=== PATIENT | female | born 1950 | race Hispanic/Latino ===

== ENCOUNTER 2018-01-15 02:41 | Emergency (ER) | payer MEDICARE ==
--- OUTSIDE RECORDS SUMMARY | 2018-01-15 02:42 | XMS REPORT ---
:1950 Author Organization eClinicalWorks Care Team Providers Name Role Phone Byrd, Na Provider Role Unavailable Allergies, Adverse Reactions, Alerts Substance Reaction Event Type N.K.D.A. 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 Problem Allergic rhinitis J30.9 Active Assessment Other spondylosis with M47.22 Active radiculopathy, cervical region Problem Hyperlipidemia E78.5 Active Assessment Acquired hypothyroidism E03.9 Active Problem Other spondylosis with M47.22 Active radiculopathy, cervical region Problem Tinea unguium B35.1 Active Problem Other spondylosis with myelopathy, 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 Problem Pain in left shoulder M25.512 Active Problem Cervicalgia M54.2 Active Assessment Hypertension I10 Active Problem Pain in right shoulder M25.511 Active Assessment Hyperlipidemia E78.5 Active Problem Lesion of oral mucosa K13.70 Active Problem Glaucoma of left eye, unspecified H40.9 Active glaucoma type Problem Decreased hearing of right ear H91.91 Active Problem History of recent fall Z91.81 Active Problem 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 Problem Family history of diabetes mellitus Z83.3 Active (DM) Problem Family history of colon cancer Z80.0 Active Problem Dry eyes H04.123 Active Problem GERD (gastroesophageal reflux K21.9 Active disease) Problem Hypertension I10 Active Problem Seasonal allergic rhinitis due to J30.1 Active pollen Problem Acquired hypothyroidism E03.9 Active Medications Medication Code Code Instructions Start End Status Dosage System Date Date Lipitor NDC 64372056197 20 MG Orally Active 1 tablet Once a day Coreg NDC 08056092686 6.25 MG Orally Active 1 tab twice a day Synthroid ND 91568992904 25 MCG Orally Active 1 tablet on an Once a day empty stomach in the morning Mupirocin [facility] 02134127514 2 % Externally Active 1 application Three times a to affected day area Claritin [facility] 16332288820 10 MG Orally Active 1 tablet Once a day Norvasc [facility] 01381073676 5 MG Orally Active 1 tablet Once a day Amlodipine [facility] 64287830507 5 MG Active TAKE 1 TABLET Besylate BY MOUTH DAILY Results No Known Results Summary Purpose eClinicalWorks Submission
--- OUTSIDE RECORDS SUMMARY | 2018-01-15 02:42 | XMS REPORT ---
:1950 Author Organization eClinicalWorks Care Team Providers Name Role Phone Byrd, Na Provider Role Unavailable Allergies No Known Allergies Problems Problem Type Condition Code Onset Dates Condition Status Problem Other spondylosis with M47.22 Active radiculopathy, cervical region Problem Tinea unguium B35.1 Active Problem Other spondylosis with myelopathy, 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 Problem Pain in left shoulder M25.512 Active Problem Cervicalgia M54.2 Active Assessment Breast cancer screening by Z12.31 Active mammogram Problem Pain in right shoulder M25.511 Active Problem Lesion of oral mucosa K13.70 [...] rhinitis due to J30.1 Active pollen Problem Allergic rhinitis J30.9 Active Problem Acquired hypothyroidism E03.9 Active Problem Hyperlipidemia E78.5 Active Medications No Known Medications Results No Known Results Summary Purpose eClinicalWorks Submission
--- OUTSIDE RECORDS SUMMARY | 2018-01-15 02:42 | XMS REPORT ---
[...] shoulder M25.512 Active Problem Cervicalgia M54.2 Active Problem Pain in right shoulder M25.511 [...] E03.9 Active Problem Hyperlipidemia E78.5 Active Medications Medication Code System Code Instructions Start End Date Status Dosage Date Synthroid [facility] 84526542035 50 MCG Orally Active 1 tablet on Once a day an empty stomach in the morning Results No Known Results Summary Purpose eClinicalWorks Submission
[2018-01-15] MEDS ORDERED: HYDRALAZINE HCL 20 MG/ML VIAL ONE (02:56)
[2018-01-15 03:41] LABS: Absolute Lymphocytes (CBC) 2.6 K/uL (0.7-4.9); Absolute Monocytes 0.5 K/uL (0.1-1.3); Absolute Neutrophil 4.7 K/uL (1.8-8.0); Basophils % 0.5 % (0-1.3); Eosinophils % 1.8 % (0-4.4); Hematocrit 41.6 % (36.0-45.0); Lymphocytes % 32.6 % (15.3-44.8); MCH 31.1 pg (27.0-35.0); MCV 89.1 fL (80-100); MPV 10.8 fL (7.6-11.3); Monocytes % 6.5 % (3.3-12.3); RBC Red Blood Cell Count 4.67 M/uL (3.86-4.86)
[2018-01-15 03:42] LABS: Protime INR 0.93
[2018-01-15 03:57] LABS: ALT/SGPT 27 U/L (12-78); AST/SGOT 22 U/L (15-37); Alkaline Phosphatase 107 U/L (45-117); BUN Blood Urea Nitrogen 14 mg/dL (7-18); Bicarbonate 26 mmol/L (21-32); Bilirubin Direct 0.1 mg/dL (0-0.2); Bilirubin Total 0.4 mg/dL (0.2-1.0); CKMB Creatine Kinase MB 2.5 ng/mL (0.3-3.6); Creatine Phosphokinase 187 U/L (26-192); Glucose Level 120 mg/dL (74-106); Magnesium 2.4 mg/dL (1.8-2.4); NT PRO-BNP 65 pg/mL (<125); Potassium 3.4 mmol/L (3.5-5.1); Protein, Total 8.1 g/dL (6.4-8.2); Sodium Level 139 mmol/L (136-145); Troponin (Emerg Dept Use Only) < 0.02 ng/mL (0.0-0.045)
[2018-01-15 04:04] LABS: Urine Blood TRACE (NEG); Urine Glucose NEGATIVE (NEG); Urine Protein NEGATIVE (NEG); Urine pH 8.5 (5.0-7.0)
[2018-01-15] MEDS ORDERED: ACETAMINOPHEN 325 MG TABLET ONE (04:06)
[2018-01-15] MEDS ORDERED: ONDANSETRON 4 MG/2 ML VIAL ONE (04:12)
[2018-01-15] MEDS ORDERED: MECLIZINE HCL 12.5 MG TAB ONE ×2 (04:33→05:53)
--- NOTE | 2018-01-15 05:48 | ER ---
Nurse's Notes [facility] Name: Kayla Babcock Age: 67 yrs Sex: Female : 1950 Arrival Date: 01/15/2018 Time: 02:42 Bed 15 Private MD: Diagnosis: Vertigo of central origin, unspecified ear Presentation: 01/15 03:04 Presenting complaint: Patient states: "I got really dizzy like the room was spinning jd3 and then got very nauseous. my stomach started to hurt and I have a slight head ache. I am also feeling very weak.". Transition of care: patient was not received from another setting of care. Onset of symptoms was January 15, 2018. Risk Assessment: Do you want to hurt yourself or someone else? Patient reports no desire to harm self or others. Initial Sepsis Screen: Does the patient meet any 2 criteria? No. Patient's initial sepsis screen is negative. Does the patient have a suspected source of infection? No. Patient's initial sepsis screen is negative. Care prior to arrival: None. 03:04 Method Of Arrival: Wheelchair jd3 03:04 Acuity: GUIDO 3 jd3 Triage Assessment: 03:28 General: Appears uncomfortable, Behavior is restless. Pain: Complains of pain in ea headache Pain currently is 5 out of 10 on a pain scale. Quality of pain is described as aching, dull. EENT: No signs and/or symptoms were reported regarding the EENT system. Neuro: Level of Consciousness is awake, alert, obeys commands, Oriented to person, place, time, situation, Reports dizziness, since 11 PM last night headache occipital area. Cardiovascular: Heart tones S1 S2 present Patient's skin is warm and dry. Respiratory: Airway is patent Respiratory effort is even, unlabored, Respiratory pattern is regular, symmetrical, Breath sounds are clear bilaterally. GI: Abdomen is non-distended, Bowel sounds present X 4 quads. : No signs and/or symptoms were reported regarding the genitourinary system. Derm: Skin is dry, Skin is pale, Skin temperature is warm. Musculoskeletal: Reports generalized weakness. Historical: - Allergies: 03:10 No Known Allergies; jd3 - Home Meds: 03:10 amlodipine 5 mg tab 1 tab once daily [Active]; atorvastatin 20 mg oral tab 1 tab once jd3 daily [Active]; levothyroxine 50 mcg tab 1 tab once daily [Active]; carvedilol 6.25 mg oral tab 1 tab 2 times per day [Active]; - PMHx: 03:10 Hypertension; High Cholesterol; jd3 - PSHx: 03:10 right overy sx; jd3 - Immunization history:: Adult Immunizations up to date. - Social history:: Smoking status: Patient/guardian denies using tobacco. - Ebola Screening: : Patient negative for fever greater than or equal to 101.5 degrees Fahrenheit, and additional compatible Ebola Virus Disease symptoms. Screenin:11 Abuse screen: Denies threats or abuse. Nutritional screening: No deficits noted. jd3 Tuberculosis screening: No symptoms or risk factors identified. Fall Risk IV access (20 points). Ambulatory Aid- Crutches/Cane/Walker (15 pts). Gait- Weak (10 pts.). Mental Status- Oriented to own ability (0 pts). Total Castro Fall Scale indicates Low Risk Score (25-44 pts). Fall prevention measures have been instituted. Side Rails Up X 2 Placed close to Nursing Station Frequent Obs/Assesments occuring Family Present and informed to notify staff if they need to leave bedside. Assessment: 03:28 Reassessment: see triage assessment. ea 04:15 Reassessment: Pt complaining of headache, provider notified, medication order obtained, ea medication administered, pt tolerated well. Reassessment: Pt complaining of nausea provider notified, medication orders obtained, medication administered. Pt tolerated well. 05:30 Reassessment: Patient and/or family updated on plan of care and expected duration. Pain ea level reassessed. Patient is alert, oriented x 3, equal unlabored respirations, skin warm/dry/pink. Pt reports symptoms improved. States " I feel less dizzy". 06:28 Reassessment: Patient and/or family updated on plan of care and expected duration. Pain ea level reassessed. Patient is alert, oriented x 3, equal unlabored respirations, skin warm/dry/pink. Discharge instructions given to patient, verbalized the understanding of instruction. Patient states feeling better. Patient states symptoms have improved. Vital Signs: 03:10 BP 194 / 91; Pulse 71; Resp 27 S; Temp 97.9(O); Pulse Ox 100% on R/A; Weight 60.78 kg jd3 (R); Height 5 ft. 2 in. (157.48 cm) (R); Pain 5/10; 03:38 BP 153 / 79; Pulse 78; Resp 18; Pulse Ox 98% ; ea 04:37 BP 138 / 77; Pulse 76; Resp 18; Pulse Ox 98% on R/A; ea 05:30 BP 136 / 78; Pulse 76; Resp 18; Pulse Ox 99% ; ea 06:15 BP 148 / 80; Pulse 80; Resp 18; Temp 97.6(O); Pulse Ox 99% ; Pain 0/10; ea 03:10 Body Mass Index 24.51 (60.78 kg, 157.48 cm) jd3 ED Course: 02:42 Patient arrived in ED. ds1 02:50 Kurtis Posada MD is Attending Physician. tw4 03:06 Triage completed. jd3 03:11 Arm band placed on. EKG completed in triage. Results shown to MD. jd3 03:11 Patient has correct armband on for positive identification. Bed in low position. Call jd3 light in reach. Side rails up X2. Adult w/ patient. 03:16 X-ray completed. Portable x-ray completed in exam room. Patient tolerated procedure kp1 well. 03:16 Abby Robison, RN is Primary Nurse. ea 03:17 XRAY Chest (1 view) In Process Unspecified. EDMS 06:28 No provider procedures requiring assistance completed. IV discontinued, intact, ea bleeding controlled, No redness/swelling at site. Pressure dressing applied. Administered Medications: 03:07 Drug: hydrALAZINE 10 mg Route: IV; Rate: bolus; Site: left antecubital; ea 03:37 Follow up: Response: No adverse reaction; Blood pressure is lowered; IV Status: ea Completed infusion 04:13 Drug: Tylenol 650 mg Route: PO; ea 05:13 Follow up: Response: No adverse reaction; Pain is decreased ea 04:29 CANCELLED (Duplicate Order): Meclizine 12.5 mg PO once ea 04:32 Drug: Zofran 4 mg Route: IVP; Site: left antecubital; ea 05:00 Follow up: Response: No adverse reaction ea 04:32 Drug: Meclizine 25 mg Route: PO; ea 05:00 Follow up: Response: No adverse reaction ea 05:57 Drug: Meclizine 25 mg Route: PO; ea 06:30 Follow up: Response: No adverse reaction ea Point of Care Testing: Blood Glucose: 03:10 Blood Glucose: 117 mg/dL; danield3 Ranges: Outcome: 05:47 Discharge ordered by . tw4 06:31 Discharged to home via wheelchair, with family. ea 06:31 Condition: improved 06:31 Discharge instructions given to patient, Instructed on discharge instructions, follow up and referral plans. medication usage, Demonstrated understanding of instructions, follow-up care, medications, Prescriptions given X 2. 06:32 Patient left the ED. ea Signatures: Dispatcher [employer] EDWY CastroLiz romero ds1 Ruthie Elaine kp1 Abby Robison RN RN ea Davies, Jonathon, RN RN jd3 Wadley, Terrence, MD MD tw4 Corrections: (The following items were deleted from the chart) 06:29 06:28 Reassessment: Patient and/or family updated on plan of care and expected ea duration. Pain level reassessed. Patient is alert, oriented x 3, equal unlabored respirations, skin warm/dry/pink. Patient states feeling better. Patient states symptoms have improved. ea
--- NOTE | 2018-01-15 05:48 | EDPHYS ---
Physician Documentation [facility] Name: Kayla Babcock Age: 67 yrs Sex: Female : 1950 Arrival Date: 01/15/2018 Time: 02:42 Bed 15 Private MD: ED Physician Kurtis Posada HPI: 01/15 02:58 This 67 yrs old Female presents to ER via Unassigned with complaints of tw4 Weakness, Dizziness. 02:58 The patient presents with generalized weakness, lightheadedness, vertigo. Onset: The tw4 symptoms/episode began/occurred just prior to arrival, today. Context: occurred at home, occurred while the patient was getting up from bed, standing. Modifying factors: The symptoms are alleviated by nothing, the symptoms are aggravated by nothing. Associated signs and symptoms: Pertinent positives: nausea, Pertinent negatives: abdominal pain, agitation, ataxia. Severity of symptoms: At their worst the symptoms were moderate in the emergency department the symptoms are unchanged. The patient has not experienced similar symptoms in the past. Historical: - Allergies: 03:10 No Known Allergies; jd3 - Home Meds: 03:10 amlodipine 5 mg tab 1 tab once daily [Active]; atorvastatin 20 mg oral tab 1 tab once jd3 daily [Active]; levothyroxine 50 mcg tab 1 tab once daily [Active]; carvedilol 6.25 mg oral tab 1 tab 2 times per day [Active]; - PMHx: 03:10 Hypertension; High Cholesterol; jd3 - PSHx: 03:10 right overy sx; jd3 - Immunization history:: Adult Immunizations up to date. - Social history:: Smoking status: Patient/guardian denies using tobacco. - Ebola Screening: : Patient negative for fever greater than or equal to 101.5 degrees Fahrenheit, and additional compatible Ebola Virus Disease symptoms. ROS: 02:58 Constitutional: Negative for fever, chills, and weight loss, Eyes: Negative for injury, tw4 pain, redness, and discharge, Cardiovascular: Negative for chest pain, palpitations, and edema, Respiratory: Negative for shortness of breath, cough, wheezing, and pleuritic chest pain, Abdomen/GI: Negative for abdominal pain, nausea, vomiting, diarrhea, and constipation, MS/Extremity: Negative for injury and deformity, Skin: Negative for injury, rash, and discoloration. 02:58 Neuro: Positive for dizziness, Negative for altered mental status, gait disturbance, headache, hearing loss, loss of consciousness, numbness, seizure activity, speech changes, syncope. Exam: 02:58 Constitutional: This is a well developed, well nourished patient who is awake, alert, tw4 and in no acute distress. Head/Face: Normocephalic, atraumatic. Neck: Trachea midline, no thyromegaly or masses palpated, and no cervical lymphadenopathy. Supple, full range of motion without nuchal rigidity, or vertebral point tenderness. No Meningismus. Chest/axilla: Normal chest wall appearance and motion. Nontender with no deformity. No lesions are appreciated. Cardiovascular: Regular rate and rhythm with a normal S1 and S2. No gallops, murmurs, or rubs. Normal PMI, no JVD. No pulse deficits. Abdomen/GI: Soft, non-tender, with normal bowel sounds. No distension or tympany. No guarding or rebound. No evidence of tenderness throughout. MS/ Extremity: Pulses equal, no cyanosis. Neurovascular intact. Full, normal range of motion. Neuro: Awake and alert, GCS 15, oriented to person, place, time, and situation. Cranial nerves II-XII grossly intact. Motor strength 5/5 in all extremities. Sensory grossly intact. Cerebellar exam normal. Normal gait. Psych: Awake, alert, with orientation to person, place and time. Behavior, mood, and affect are within normal limits. Vital Signs: 03:10 BP 194 / 91; Pulse 71; Resp 27 S; Temp 97.9(O); Pulse Ox 100% on R/A; Weight 60.78 kg jd3 (R); Height 5 ft. 2 in. (157.48 cm) (R); Pain 5/10; 03:38 BP 153 / 79; Pulse 78; Resp 18; Pulse Ox 98% ; ea 04:37 BP 138 / 77; Pulse 76; Resp 18; Pulse Ox 98% on R/A; ea 05:30 BP 136 / 78; Pulse 76; Resp 18; Pulse Ox 99% ; ea 06:15 BP 148 / 80; Pulse 80; Resp 18; Temp 97.6(O); Pulse Ox 99% ; Pain 0/10; ea 03:10 Body Mass Index 24.51 (60.78 kg, 157.48 cm) jd3 MDM: 02:50 Patient medically screened. 01/16 02:57 Differential diagnosis: cardiac arrhythmia, CVA, idiopathic dizziness, near-syncope, tw4 TIA. Data reviewed: vital signs, nurses notes. Data interpreted: satellite project site monitor: rhythm is normal sinus rhythm, Pulse oximetry: Interpretation: normal. Counseling: I had a detailed discussion with the patient and/or guardian regarding: the historical points, exam findings, and any diagnostic results supporting the discharge/admit diagnosis, lab results, radiology results. Special discussion: I discussed with the patient/guardian in detail that at this point there is no indication for admission to the hospital. It is understood, however, that if the symptoms persist or worsen the patient needs to return immediately for re-evaluation. 01/15 02:52 Order name: Basic Metabolic Panel; Complete Time: 05:10 01/15 05:11 Interpretation: Normal except: GLUC 120; GFR 83; K 3.4. 01/15 02:52 Order name: CBC with Diff; Complete Time: 05:10 01/15 02:52 Order name: Ckmb; Complete Time: 05:10 01/15 05:10 Interpretation: Within normal limits: CKMB 2.5. 01/15 02:52 Order name: CPK; Complete Time: 05:10 01/15 05:10 Interpretation: Within normal limits: CPK 187. 01/15 02:52 Order name: LFT's; Complete Time: 05:10 01/15 05:10 Interpretation: Normal except: GLOB 4.1; A/G 1.0. 01/15 02:52 Order name: Magnesium; Complete Time: 05:10 01/15 05:10 Interpretation: Within normal limits: MG 2.4. 01/15 02:52 Order name: NT PRO-BNP; Complete Time: 05:10 01/15 05:10 Interpretation: Within normal limits: NT PRO-BNP 65. 01/15 02:52 Order name: PT-INR; Complete Time: 05:10 01/15 05:11 Interpretation: Within normal limits: PT 11.0. 01/15 02:52 Order name: Ptt, Activated; Complete Time: 05:10 01/15 05:11 Interpretation: Within normal limits: PTT 30.7. 01/15 02:52 Order name: Troponin (emerg Dept Use Only); Complete Time: 05:10 01/15 05:11 Interpretation: Within normal limits: TROPED < 0.02. 01/15 02:52 Order name: XRAY Chest (1 view) 01/15 03:52 Order name: Urine Dipstick--Ancillary (enter results); Complete Time: 05:10 ms 01/15 05:10 Interpretation: Normal except: UPH 8.5; UBLD TRACE. 01/15 02:52 Order name: EKG; Complete Time: 02:53 01/15 02:52 Order name: Cardiac monitoring; Complete Time: 03:15 01/15 02:52 Order name: EKG - Nurse/Tech; Complete Time: 03:15 01/15 02:52 Order name: IV Saline Lock; Complete Time: 03:15 01/15 02:52 Order name: Labs collected and sent; Complete Time: 03:15 01/15 02:52 Order name: O2 Per Protocol; Complete Time: 03:15 01/15 02:52 Order name: O2 Sat Monitoring; Complete Time: 03:15 01/15 02:52 Order name: Urine Dipstick-Ancillary (obtain specimen); Complete Time: 03:35 tw4 EC/02 02:58 Rate is 71 beats/min. Rhythm is regular. QRS [place] is Normal. IN interval is normal. QT tw4 interval is normal. T waves are Normal. No ST changes noted. Clinical impression: Normal ECG. Interpreted by me. Reviewed by me. Administered Medications: 03:07 Drug: hydrALAZINE 10 mg Route: IV; Rate: bolus; Site: left antecubital; ea 03:37 Follow up: Response: No adverse reaction; Blood pressure is lowered; IV Status: ea Completed infusion 04:13 Drug: Tylenol 650 mg Route: PO; ea 05:13 Follow up: Response: No adverse reaction; Pain is decreased ea 04:29 CANCELLED (Duplicate Order): Meclizine 12.5 mg PO once ea 04:32 Drug: Zofran 4 mg Route: IVP; Site: left antecubital; ea 05:00 Follow up: Response: No adverse reaction ea 04:32 Drug: Meclizine 25 mg Route: PO; ea 05:00 Follow up: Response: No adverse reaction ea 05:57 Drug: Meclizine 25 mg Route: PO; ea 06:30 Follow up: Response: No adverse reaction ea Point of Care Testing: Blood Glucose: 03:10 Blood Glucose: 117 mg/dL; jd3 Ranges: Critical Glucose Levels:Adult <50 mg/dl or >400 mg/dl <40 mg/dl or >180 mg/dl Disposition: 01/15/18 05:47 Discharged to Home. Impression: Vertigo of central origin, unspecified ear. - Condition is Stable. - Discharge Instructions: Dizziness, Vertigo. - Prescriptions for Meclizine 25 mg Oral Tablet - take 1 tablet by ORAL route every 8 hours As needed; 30 tablet. Zofran 4 mg Oral Tablet - take 1 tablet by ORAL route every 12 hours As needed; 6 tablet. - Medication Reconciliation Form, Thank You Letter, Antibiotic Education, Prescription Opioid Use form. - Follow up: Private Physician; When: Today; Reason: Further diagnostic work-up, Recheck today's complaints, Re-evaluation by your physician. - Problem is new. - Symptoms have improved. Signatures: Dispatcher [employer] EDAbby Castañeda RN RN ea Davies, Jonathon RN Kurtis Baker MD MD tw4 Corrections: (The following items were deleted from the chart) 04:29 04:26 Meclizine 12.5 mg PO once ordered. [facility] 05:11 05:10 Normal except: GLUC 120. tw4 tw4 06:32 05:47 01/15/2018 05:47 Discharged to Home. Impression: Vertigo of central origin, ea unspecified ear. Condition is Stable. Forms are Medication Reconciliation Form, Thank You Letter, Antibiotic Education, Prescription Opioid Use. Follow up: Private Physician; When: Today; Reason: Further diagnostic work-up, Recheck today's complaints, Re-evaluation by your physician. Problem is new. Symptoms have improved. tw4
--- NOTE | 2018-01-15 08:37 | EKG ---
Test Date: 2018-01-15 Test Time: 02:51:31 Coffee Maker Servicer: JESSIE MEASUREMENT RESULTS: Intervals: Rate: 71 MD: 146 QRSD: 70 QT: 392 QTc: 425 [place]: P: 68 MD: 146 QRS: 59 T: 48 INTERPRETIVE STATEMENTS: Normal sinus rhythm Normal ECG No previous ECG available for comparison Electronically Signed On 01-15-18 08:36:19 CDT by Jesús Nelson
--- NOTE | 2018-01-15 09:39 | RAD REPORT ---
EXAM DESCRIPTION: Richard Single View01/15/2018 9:10 am CLINICAL HISTORY: CHEST PAIN COMPARISON: No comparisons FINDINGS: The lungs appear clear of acute infiltrate. The heart is normal size IMPRESSION: No acute abnormalities displayed
== END 2018-01-15 06:32 | disposition home or self-care (01) ==
LOC: ER 02:41
DX: H81.49 Vertigo of central origin, unspecified ear (principal); I10 Essential (primary) hypertension; E78.00 Pure hypercholesterolemia, unspecified
CPT/HCPCS: 36415; 71045; 80048; 80076; 81003; 82550; 82553; 83735; 83880; 84484; 85025; 85610; 85730; 93005; 96365; 96375; 99283; J0360; J2405; 82962

== ENCOUNTER 2019-07-26 16:15 | Emergency (ER) | payer MEDICARE, OTHER ==
--- OUTSIDE RECORDS SUMMARY | 2019-07-26 16:18 | XMS REPORT ---
:1950 Author [facility] Address [address] [place] [address] Dr. Montoya [address] [place] [id number] Care Team Providers Name Role Phone Unavailable Unavailable Unavailable Problems This patient has no known problems. Allergies, Adverse Reactions, Alerts This patient has no known allergies or adverse reactions. Medications This patient has no known medications.
--- OUTSIDE RECORDS SUMMARY | 2019-07-26 16:19 | XMS REPORT ---
:1950 Author Organization e[employer]Works Care Team Providers Name Role Phone Byrd, Na Provider Role Unavailable Allergies, Adverse Reactions, Alerts Substance Reaction Event Type N.K.D.A. Info Not Available Non Drug Allergy Problems Problem Type Condition Code Onset Dates Condition Status Assessment Hypertension I10 Active Assessment Gastroesophageal reflux disease, K21.9 Active esophagitis presence not specified Assessment Dizziness R42 Active Problem Hypertension I10 Active Problem Allergic rhinitis J30.9 Active Problem Hyperlipidemia E78.5 Active Problem GERD (gastroesophageal reflux K21.9 Active disease) Problem Acquired hypothyroidism E03.9 Active Problem Family history of colon cancer Z80.0 Active Problem History of recent fall Z91.81 Active Problem Lesion of oral mucosa K13.70 Active Problem Dry eyes H04.123 Active Problem Cervical disc herniation M50.20 Active Problem Abnormal mammogram R92.8 Active Problem Ingrown toenail of right foot L60.0 Active Problem Memory changes R41.3 Active Problem Primary insomnia F51.01 Active Problem Seasonal allergic rhinitis due to J30.1 Active pollen Problem Family history of diabetes mellitus Z83.3 Active (DM) Problem Dizziness R42 Active Problem 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 Problem Mild atherosclerosis of both I65.23 Active carotid arteries Problem Abnormal mammogram of left breast R92.8 Active Problem Gastroesophageal reflux disease, K21.9 Active esophagitis presence not specified Problem Mild carotid artery disease I77.9 Active Assessment Primary insomnia F51.01 Active Problem Other spondylosis with M47.22 Active radiculopathy, cervical region Assessment Memory changes R41.3 Active Problem Other spondylosis with myelopathy, 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 Assessment Hyperlipidemia E78.5 Active Problem Glaucoma of left eye, unspecified H40.9 Active glaucoma type Assessment Acquired hypothyroidism E03.9 Active Problem Tinea unguium B35.1 Active Assessment Seasonal allergic rhinitis due to J30.1 Active pollen Problem Decreased hearing of right ear H91.91 Active Assessment Mild atherosclerosis of both I65.23 Active carotid arteries Problem Cervicalgia M54.2 Active Problem Pain in left shoulder M25.512 Active Problem Pain in right shoulder M25.511 Active Medications Medication Code Code Instructions Start End Status Dosage System Date Date Coreg [facility] 20554464628 6.25 Orally Active 1 tab twice a day Omeprazole [facility] 95625231730 40 MG Orally Feb 01, Active 1 capsule Once a day 2018 Synthroid [facility] 29840404351 50 MCG Orally Active 1 tablet on Once a day an empty stomach in the morning Claritin [facility] 39549886982 10 MG Orally Active 1 tablet Once a day Medrol [facility] 10491719673 4 MG Orally Jun 13, Active as directed daily 2018 with food Montelukast [facility] 72317554415 10 MG Orally May 22, Active 1 tablet in Sodium Once a day 2018 the evening Tamiflu [facility] 51134477836 75 MG Orally May 02, Active 1 capsule Twice a day 2017 Coreg [facility] 68150866095 6.25 MG Orally Active 1 tab twice a day Montelukast [facility] 91278611638 10 MG Orally Jan 23, Active 1 tablet in Sodium Once a day 2017 the evening Amlodipine [facility] 79018596928 5 Active TAKE 1 TABLET Besylate BY MOUTH DAILY Atorvastatin [facility] 64013602122 40 MG Orally Dec 27, Active 1 tablet Calcium Once a day 2018 Mirtazapine [facility] 11302780137 7.5 MG Orally Feb 01, Active 1 tablet at Once a day 2019 bedtime Lipitor [facility] 47855398124 20 MG Orally Active 1 tablet Once a day Coreg [facility] 14552262004 6.25 Orally Active 1 tab twice a day Mupirocin [facility] 71943542246 2 % Externally Active 1 application Three times a to affected day area Cetirizine HCl [facility] 09252168218 10 MG Orally May 22, Active 1 tablet Once a day in 2018 AM Norvasc [facility] 98878862402 2.5 MG Orally Active 1 tablet Once a day Results No Known Results Summary Purpose eClinicalWorks Submission
--- OUTSIDE RECORDS SUMMARY | 2019-07-26 16:19 | XMS REPORT ---
:1950 Author Organization [employer] Care Team Providers Name Role Phone Byrd, Na Provider Role Unavailable Allergies No Known Allergies Problems Problem Type Condition Code Onset Dates Condition Status Problem Hypertension I10 Active Problem Allergic rhinitis J30.9 Active Problem Hyperlipidemia E78.5 Active Problem GERD (gastroesophageal reflux K21.9 Active disease) Problem Acquired hypothyroidism E03.9 Active Problem Family history of colon cancer Z80.0 Active Problem Dry eyes H04.123 Active Problem Lesion of oral mucosa K13.70 Active Problem Cervical disc herniation M50.20 Active Problem 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 Problem Ingrown toenail of right foot L60.0 Active Problem Abnormal mammogram of left breast R92.8 Active Problem Abnormal mammogram R92.8 Active Problem Gastroesophageal reflux disease, K21.9 Active esophagitis presence not specified Problem Memory changes R41.3 Active Problem Glaucoma of left eye, unspecified H40.9 Active glaucoma type Problem Seasonal allergic rhinitis due to J30.1 Active pollen Problem Screening for malignant neoplasm of Z12.39 Active breast Problem Family history of diabetes mellitus Z83.3 Active (DM) Problem Mild carotid artery disease I77.9 Active Problem Mild atherosclerosis of both I65.23 Active carotid arteries Problem Primary insomnia F51.01 Active Problem Dizziness R42 Active Problem Other spondylosis with myelopathy, 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
--- OUTSIDE RECORDS SUMMARY | 2019-07-26 16:19 | XMS REPORT ---
:1950 Author Organization [employer]Works Care Team Providers Name Role Phone Byrd, Na Provider Role Unavailable Allergies, Adverse Reactions, Alerts Substance Reaction Event Type N.K.D.A. 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 Assessment Hypertension I10 Active Problem Decreased hearing of right ear H91.91 Active Assessment Primary insomnia F51.01 Active Problem Tinea unguium B35.1 Active Assessment Mild atherosclerosis of both I65.23 Active carotid arteries Problem Other spondylosis with M47.22 Active radiculopathy, cervical region Assessment Seasonal allergic rhinitis due to J30.1 Active pollen Problem Cervicalgia M54.2 Active Assessment Change in bowel habits R19.4 Active Problem History of recent fall Z91.81 Active Problem Pain in left shoulder M25.512 Active Problem Pain in right shoulder M25.511 Active Medications Medication Code Code Instructions Start End Status Dosage System Date Date Montelukast [facility] 43220882461 10 mg Orally Active 1 tablet in Sodium Once a day the evening Norvasc [facility] 36543244753 2.5 MG Orally Active 1 tablet Once a day Meclizine HCl ND 73796517663 25 MG Orally Mar 06, Active 1 tablet as Once a day 2018 needed Medrol [facility] 72080056356 4 MG Orally Jun 13, Active as directed daily 2018 with food Atorvastatin ND 90184276771 40 MG Orally Dec 27, Active 1 tablet Calcium Once a day 2018 Carvedilol [facility] 90260337805 6.25 mg Active TAKE 1 TABLET BY MOUTH TWICE DAILY. Tamiflu [facility] 89997011858 75 MG Orally May 02, Active 1 capsule Twice a day 2017 Omeprazole [facility] 94939456335 40 MG Orally Feb 01, Active 1 capsule Once a day 2018 Cetirizine HCl [facility] 56067641601 10 MG Orally May 22, Active 1 tablet Once a day in 2018 AM Coreg [facility] 86375626377 6.25 Orally Active 1 tab twice a day Lipitor [facility] 54427266274 20 MG Orally Active 1 tablet Once a day Claritin [facility] 45612076311 10 MG Orally Active 1 tablet Once a day Amlodipine [facility] 97228180093 5 mg Active TAKE 1 TABLET Besylate BY MOUTH EVERY DAY Synthroid [facility] 68272732101 50 MCG Orally Active 1 tablet on Once a day an empty stomach in the morning Amlodipine [facility] 50328858379 5 Active TAKE 1 TABLET Besylate BY MOUTH DAILY Mupirocin [facility] 79458984973 2 % Externally Active 1 application Three times a to affected day area Coreg [facility] 54264799011 6.25 MG Orally Active 1 tab twice a day Mirtazapine [facility] 95135238718 15 MG Orally Active 1 tablet at Once a day bedtime Coreg [facility] 57585607948 6.25 Orally Active 1 tab twice a day Results No Known Results Summary Purpose eClinicalWorks Submission
--- OUTSIDE RECORDS SUMMARY | 2019-07-26 16:20 | XMS REPORT ---
:1950 Author Organization eClinicalWorks Care Team Providers Name Role Phone Byrd, Na Provider Role Unavailable Allergies No Known Allergies Problems Problem Type Condition Code Onset Dates Condition Status Assessment Hypertension I10 Active Assessment Hyperlipidemia E78.5 Active Problem Hypertension I10 Active Problem Allergic [...] End Status Dosage System Date Date Montelukast [facility] 14451167849 10 mg Orally Active 1 tablet Sodium Once a day in the evening Lipitor [facility] 25139891510 20 MG Orally Active 1 tablet Once a day Amlodipine [facility] 27278504593 5 Orally Once a Active TAKE 1 Besylate day TABLET BY MOUTH DAILY Coreg [facility] 38295601760 6.25 MG Orally Active 1 tab twice a day Results No Known Results Summary Purpose eClinicalWorks Submission
--- OUTSIDE RECORDS SUMMARY | 2019-07-26 16:20 | XMS REPORT ---
:1950 Author Organization eClinicalWorks Care Team Providers Name Role Phone Byrd, Na Provider Role Unavailable Allergies, Adverse Reactions, Alerts Substance Reaction Event Type N.K.D.A. 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 Problem Cervical disc herniation M50.20 Active Problem Ingrown toenail of right foot L60.0 Active Problem Family history of diabetes mellitus Z83.3 Active (DM) Problem Abnormal mammogram R92.8 Active Problem Mild atherosclerosis of both I65.23 Active carotid arteries Problem Abnormal mammogram of left breast R92.8 Active Problem Screening for malignant neoplasm of Z12.39 Active breast Problem Gastroesophageal reflux disease, K21.9 Active esophagitis presence not specified Problem Tinea unguium B35.1 Active Problem Glaucoma of left eye, unspecified H40.9 Active glaucoma type Problem 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, lumbar region Problem Seasonal allergic rhinitis due to J30.1 Active pollen Problem Dizziness R42 Active Problem Mild carotid artery disease I77.9 Active Problem Memory changes R41.3 Active Problem Primary insomnia F51.01 Active Assessment Hyperlipidemia E78.5 Active Problem Pain in left shoulder M25.512 Active Assessment Hypertension I10 Active Problem Pain in right shoulder M25.511 Active Assessment Mild atherosclerosis of both I65.23 Active carotid arteries Problem Other spondylosis with M47.22 Active radiculopathy, cervical region Assessment 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, lumbar region Problem Other spondylosis with myelopathy, 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 Assessment Seasonal allergic rhinitis due to J30.1 Active pollen Problem History of recent fall Z91.81 Active Assessment Primary insomnia F51.01 Active Problem Lesion of oral mucosa K13.70 Active Problem Decreased hearing of right ear H91.91 Active Problem Cervicalgia M54.2 Active Medications Medication Code Code Instructions Start End Status Dosage System Date Date Omeprazole [facility] 75800662660 40 MG Orally Sept Active 1 capsule Once a day 2018 Synthroid [facility] 69329384878 50 MCG Orally Active 1 tablet on Once a day an empty stomach in the morning Coreg [facility] 34878732918 6.25 MG Orally Active 1 tab twice a day Montelukast [facility] 56287988225 10 mg Orally Active 1 tablet in Sodium Once a day the evening Atorvastatin [facility] 40221367954 40 MG Orally Dec 27, Active 1 tablet Calcium Once a day 2018 Cetirizine HCl [facility] 83098922810 10 MG Orally May 22, Active 1 tablet Once a day in 2018 AM Amlodipine [facility] 79104836926 5 mg Active TAKE 1 TABLET Besylate BY MOUTH EVERY DAY Lipitor [facility] 71276925296 20 MG Orally Active 1 tablet Once a day Norvasc [facility] 69593472127 2.5 MG Orally Active 1 tablet Once a day Coreg [facility] 48337883676 6.25 Orally Active 1 tab twice a day Carvedilol [facility] 34683200679 6.25 mg Active TAKE 1 TABLET BY MOUTH TWICE DAILY. Tamiflu [facility] 72008196800 75 MG Orally May 02, Active 1 capsule Twice a day 2017 Medrol [facility] 76182791386 4 MG Orally Jun 13, Active as directed daily 2018 with food Mirtazapine [facility] 69340886804 15 MG Orally Active 1 tablet at Once a day bedtime Levothyroxine [facility] 48172319400 50 MCG Orally Jun 11, Active 1 tablet in Sodium Once a day 2019 the morning on an empty stomach Coreg [facility] 91419241580 6.25 Orally Active 1 tab twice a day Claritin [facility] 86097418842 10 MG Orally November Active 1 tablet Once a day 2019 Meclizine HCl [facility] 17949866586 25 MG Orally Active 1 tablet as Once a day needed Amlodipine [facility] 98696237103 5 Orally Once a Active TAKE 1 TABLET Besylate day BY MOUTH DAILY Mupirocin [facility] 75315248871 2 % Externally Active 1 application Three times a to affected day area Results No Known Results Summary Purpose eClinicalWorks Submission
[2019-07-26 17:58] LABS: Absolute Lymphocytes (CBC) 0.7 K/uL (0.7-4.9); Basophils % 0.2 % (0-1.3); Hematocrit 40.8 % (36.0-45.0); Lymphocytes % 10.6 % (15.3-44.8); MPV 10.6 fL (7.6-11.3); RBC Red Blood Cell Count 4.46 M/uL (3.86-4.86)
[2019-07-26 18:02] LABS: Protime INR 1.01
--- NOTE | 2019-07-26 18:05 | RAD REPORT ---
EXAM DESCRIPTION: RAD - Chest Single View - 07/26/2019 5:58 pm CLINICAL HISTORY: CHEST PAIN, chest pressure COMPARISON: Portable chest January 2018 TECHNIQUE: AP portable chest image was obtained 07/26/2019 5:58 pm . FINDINGS: No focal lung parenchymal process. Interstitial pattern matches comparison. Heart and vasc ulature are normal. No measurable pleural effusion and no pneumothorax. No acute bony abnormality see n. No acute aortic findings suspected. IMPRESSION: No acute cardiopulmonary process.
[2019-07-26 18:09] LABS: Urine Blood TRACE (NEG); Urine Glucose NEGATIVE (NEG); Urine Protein 1+ (NEG); Urine Specific Gravity 1.025 (1.005-1.030)
[2019-07-26 18:13] LABS: ALT/SGPT 27 U/L (12-78); AST/SGOT 28 U/L (15-37); Albumin 3.6 g/dL (3.4-5.0); Alkaline Phosphatase 100 U/L (45-117); BUN Blood Urea Nitrogen 11 mg/dL (7-18); Bicarbonate 27 mmol/L (21-32); Bilirubin Direct 0.2 mg/dL (0-0.2); Bilirubin Total 0.9 mg/dL (0.2-1.0); Glucose Level 106 mg/dL (74-106); Lipase 75 U/L (73-393); Magnesium 2.5 mg/dL (1.8-2.4); NT PRO-BNP 115 pg/mL (<125); Potassium 3.3 mmol/L (3.5-5.1); Protein, Total 7.4 g/dL (6.4-8.2); Sodium Level 138 mmol/L (136-145); Troponin (Emerg Dept Use Only) < 0.02 ng/mL (0.0-0.045)
[2019-07-26] MEDS ORDERED: FAMOTIDINE 20 MG/2 ML VIAL IV ONE (18:22)
[2019-07-26] MEDS ORDERED: ONDANSETRON 4 MG/2 ML VIAL ONE (18:22)
[2019-07-26] MEDS ORDERED: NA CHLORIDE 0.9% 500 ML ONE (18:30)
[2019-07-26 18:50] LABS: Urine Bacteria <20 /HPF (<20); Urine Culture Reflex Order NOT NEEDED; Urine RBC <5 /HPF (NONE SEEN)
--- NOTE | 2019-07-26 19:23 | ER ---
Nurse's Notes [facility] Name: Kayla Babcock Age: 68 yrs Sex: Female : 1950 Arrival Date: 07/26/2019 Time: 16:19 Bed 16 Private MD: Diagnosis: Influenza due to identified novel influenza A virus Presentation: 07/25 16:25 Chief complaint: Patient states: Intermittent chest pressure, head floating, weakness jl7 in legs and arms feel weak. Coronavirus screen: The patient has NOT traveled to a country currently being monitored by the CDC within the last 14 days. Proceed with normal triage procedures. Ebola Screen: No symptoms or risks identified at this time. Initial Sepsis Screen: Does the patient meet any 2 criteria? No. Patient's initial sepsis screen is negative. Does the patient have a suspected source of infection? No. Patient's initial sepsis screen is negative. Risk Assessment: Do you want to hurt yourself or someone else? Patient reports no desire to harm self or others. Onset of symptoms was July 26, 2019 at 15:00. 16:25 Method Of Arrival: Ambulatory jl7 16:25 Acuity: GUIDO 3 jl7 Triage Assessment: 16:30 Headache History: Denies prior headaches. General: Appears in no apparent distress. jl7 uncomfortable, Behavior is calm, cooperative, appropriate for age. Pain: Complains of pain in chest and DELUCA Pain currently is 0 out of 10 on a pain scale. Pain began 1 day ago. Also complains of no other associated symptoms. Neuro: Level of Consciousness is awake, alert, obeys commands. Historical: - Allergies: 16:30 No Known Allergies; jl7 - Home Meds: 16:30 amlodipine 5 mg tab 1 tab once daily [Active]; atorvastatin 20 mg Oral tab 1 tab once jl7 daily [Active]; carvedilol 6.25 mg Oral tab 1 tab 2 times per day [Active]; levothyroxine 50 mcg tab 1 tab once daily [Active]; montelukast oral oral [Active]; total restore [Active]; - PMHx: 16:30 High Cholesterol; Hypertension; jl7 - PSHx: 16:30 right overy sx; jl7 - Immunization history:: Adult Immunizations up to date. - Social history:: Smoking status: Patient denies any tobacco usage or history of. Screenin:36 Abuse screen: Denies threats or abuse. Denies injuries from another. Nutritional mg2 screening: No deficits noted. Tuberculosis screening: No symptoms or risk factors identified. Fall Risk IV access (20 points). Assessment: 17:30 General: Appears in no apparent distress. comfortable, Behavior is calm, cooperative. mg2 Pain: Complains of pain in abdomen. Neuro: Level of Consciousness is awake, alert, obeys commands, Oriented to person, place, time, situation, Reports headache. Cardiovascular: Capillary refill < 3 seconds Patient's skin is warm and dry. Respiratory: Airway is patent Respiratory effort is even, unlabored, Respiratory pattern is regular, symmetrical. GI: No signs and/or symptoms were reported involving the gastrointestinal system. : No signs and/or symptoms were reported regarding the genitourinary system. EENT: No signs and/or symptoms were reported regarding the EENT system. Derm: Skin is intact, is healthy with good turgor, Skin is pink, warm \T\ dry. normal. Musculoskeletal: Circulation, motion, and sensation intact. Capillary refill < 3 seconds. 19:56 Reassessment: Patient appears in no apparent distress at this time. Patient is alert, aa1 oriented x 3, equal unlabored respirations, skin warm/dry/pink. Discussed d/c \T\ f/u instructions with pt; denies questions or concerns at this time. Ambulatory to lobby with steady gait. Patient states feeling better. Vital Signs: 16:25 BP 154 / 95; Pulse 85; Resp 16 S; Temp 98.1(O); Pulse Ox 100% on R/A; Weight 63.05 kg jl7 (R); Height 5 ft. 2 in. (157.48 cm) (R); Pain 0/10; 19:56 BP 145 / 79; Pulse 80; Resp 18; Temp 98.5; Pulse Ox 100% on R/A; Pain 0/10; aa1 16:25 Body Mass Index 25.42 (63.05 kg, 157.48 cm) jl7 ED Course: 16:19 Patient arrived in ED. ag5 16:29 Triage completed. jl7 16:30 Arm band placed on right wrist. jl7 17:10 [facility] la1 17:10 Pan Hurst MD is Attending Physician. la1 17:32 Mack Sanchez, MARIAN is Primary Nurse. mg2 18:10 XRAY Chest (1 view) In Process Unspecified. EDMS 18:15 Inserted saline lock: 20 gauge in right antecubital area, using aseptic technique. mg2 Blood collected. 18:36 Patient has correct armband on for positive identification. mg2 18:36 No provider procedures requiring assistance completed. mg2 19:56 IV discontinued, intact, bleeding controlled, No redness/swelling at site. Pressure aa1 dressing applied. 19:59 Attending Physician role handed off by Pan Hurst MD aa1 19:59 Primary Nurse role handed off by Mack Sanchez RN aa1 Administered Medications: 18:29 Drug: NS 0.9% 500 ml Route: IV; Rate: bolus; Site: right antecubital; mg2 19:05 Follow up: IV Status: Completed infusion; IV Intake: 500ml aa1 18:30 Drug: Pepcid 20 mg Route: IVP; Site: right antecubital; mg2 19:30 Follow up: Response: No adverse reaction; Marked relief of symptoms aa1 18:30 Drug: Zofran (Ondansetron) 4 mg Route: IVP; Site: right antecubital; mg2 19:30 Follow up: Response: No adverse reaction; Marked relief of symptoms aa1 19:45 Drug: Potassium Effervescent Tablet 50 mEq Route: PO; aa1 20:00 Follow up: Response: Medication administered at discharge. aa1 Intake: 19:05 IV: 500ml; Total: 500ml. aa1 Outcome: 19:23 Discharge ordered by . la1 19:56 Discharged to home ambulatory, with family. aa1 19:56 Condition: good 19:56 Discharge instructions given to patient, family, Instructed on discharge instructions, follow up and referral plans. medication usage, Demonstrated understanding of instructions, follow-up care, medications, Prescriptions given X 1. 19:58 Patient left the ED. aa1 20:01 Patient left the ED. aa1 Signatures: Dispatcher [employer] EDGA Val Guevara RN RN aa1 Liam Samuels, [employer] INST[employer]ER-C [employer] INST[employer]ER-Cla1 José Miguel Devi RN RN jl7 Mack Sanchez RN RN mg2 Rhonda, Ajare ag5
--- NOTE | 2019-07-26 19:24 | EDPHYS ---
Physician Documentation Formerly [facility] Name: Kayla Babcock Age: 68 yrs Sex: Female : 1950 Arrival Date: 07/26/2019 Time: 16:19 Bed 16 Private MD: ED Physician HPI: 07/25 18:44 This 68 yrs old Female presents to ER via Ambulatory with complaints of la1 Headache, General Weakness. 18:44 The patient complains of pain to the forehead. The patient describes the headache as la1 pounding. Onset: The symptoms/episode began/occurred yesterday. Associated signs and symptoms: Pertinent positives: malaise, nausea. Severity of symptoms: At its worst the pain was mild. Headache History: Denies prior headaches. The patient has not experienced similar symptoms in the past. Historical: - Allergies: 16:30 No Known Allergies; jl7 - Home Meds: 16:30 amlodipine 5 mg tab 1 tab once daily [Active]; atorvastatin 20 mg Oral tab 1 tab once jl7 daily [Active]; carvedilol 6.25 mg Oral tab 1 tab 2 times per day [Active]; levothyroxine 50 mcg tab 1 tab once daily [Active]; montelukast oral oral [Active]; total restore [Active]; - PMHx: 16:30 High Cholesterol; Hypertension; jl7 - PSHx: 16:30 right overy sx; jl7 - Immunization history:: Adult Immunizations up to date. - Social history:: Smoking status: Patient denies any tobacco usage or history of. ROS: 18:44 Constitutional: Negative for fever, chills, and weight loss, Eyes: Negative for injury, la1 pain, redness, and discharge, ENT: Negative for injury, pain, and discharge, Neck: Negative for injury, pain, and swelling, Cardiovascular: Negative for chest pain, palpitations, and edema, Respiratory: Negative for shortness of breath, cough, wheezing, and pleuritic chest pain, Abdomen/GI: Negative for abdominal pain, nausea, vomiting, diarrhea, and constipation, Back: Negative for injury and pain, MS/Extremity: Negative for injury and deformity. 18:44 Skin: Negative for injury, rash, and discoloration, Neuro: Negative for headache, weakness, numbness, tingling, and seizure. 18:44 Neuro: Positive for subjective weakness/malaise. Exam: 18:46 Constitutional: This is a well developed, well nourished patient who is awake, alert, la1 and in no acute distress. Head/Face: Normocephalic, atraumatic. ENT: Mucous membranes moist. Neck: Trachea midline. No Meningismus. Chest/axilla: Normal chest wall appearance and motion. Nontender with no deformity. No lesions are appreciated. Cardiovascular: Regular rate and rhythm with a normal S1 and S2. No gallops, murmurs, or rubs. Normal PMI, no JVD. No pulse deficits. Respiratory: Lungs have equal breath sounds bilaterally, clear to auscultation Abdomen/GI: Soft, non-tender, with normal bowel sounds. No distension or tympany. No guarding or rebound. No evidence of tenderness throughout. Skin: Warm, dry with normal turgor. Normal color with no rashes, no lesions, and no evidence of cellulitis. MS/ Extremity: Pulses equal, no cyanosis. Neurovascular intact. Full, normal range of motion. Vital Signs: 16:25 BP 154 / 95; Pulse 85; Resp 16 S; Temp 98.1(O); Pulse Ox 100% on R/A; Weight 63.05 kg jl7 (R); Height 5 ft. 2 in. (157.48 cm) (R); Pain 0/10; 19:56 BP 145 / 79; Pulse 80; Resp 18; Temp 98.5; Pulse Ox 100% on R/A; Pain 0/10; aa1 16:25 Body Mass Index 25.42 (63.05 kg, 157.48 cm) jl7 MDM: 17:10 Patient medically screened. la1 19:21 Data reviewed: vital signs, nurses notes, lab test result(s), EKG, radiologic studies, la1 I have discussed the patient's presentation/case with the attending Emergency Department Physician; and as a result, I will discharge patient. Data interpreted: Pulse oximetry: on room air is 100 %. Interpretation: normal. Counseling: I had a detailed discussion with the patient and/or guardian regarding: the historical points, exam findings, and any diagnostic results supporting the discharge/admit diagnosis, lab results, radiology results, the need for outpatient follow up, a family practitioner, to return to the emergency department if symptoms worsen or persist or if there are any questions or concerns that arise at home. Special discussion: I discussed with the patient/guardian in detail that at this point there is no indication for admission to the hospital. It is understood, however, that if the symptoms persist or worsen the patient needs to return immediately for re-evaluation. 07/25 17:30 Order name: Basic Metabolic Panel; Complete Time: 18:35 [facility] 07/25 17:30 Order name: CBC with Diff [facility] 07/25 17:30 Order name: LFT's; Complete Time: 18:35 [facility] 07/25 17:30 Order name: Magnesium [facility] 07/25 17:30 Order name: NT PRO-BNP; Complete Time: 18:35 [facility] 07/25 17:30 Order name: PT-INR [facility] 07/25 17:30 Order name: Troponin (emerg Dept Use Only) [facility] 07/25 17:30 Order name: Lipase [facility] 07/25 17:30 Order name: Flu [facility] 07/25 17:40 Order name: Urine Microscopic Only; Complete Time: 19:14 [facility] 07/25 17:52 Order name: Urine Dipstick--Ancillary (enter results) 07/25 17:59 Order name: CBC with Automated Diff; Complete Time: 18:35 [facility] 07/25 18:08 Order name: Protime (+INR) [facility] 07/25 18:08 Order name: Influenza Screen (A [facility] 07/25 17:30 Order name: XRAY Chest (1 view); Complete Time: 19:14 [facility] 07/25 17:30 Order name: EKG; Complete Time: 17:32 [facility] 07/25 17:30 Order name: Cardiac monitoring; Complete Time: 18:30 [facility] 07/25 17:30 Order name: EKG - Nurse/Tech; Complete Time: 18:30 [facility] 07/25 17:30 Order name: IV Saline Lock; Complete Time: 18:30 [facility] 07/25 17:30 Order name: Labs collected and sent; Complete Time: 18:31 [facility] 07/25 17:30 Order name: O2 Per Protocol; Complete Time: 18:31 [facility] 07/25 17:30 Order name: O2 Sat Monitoring; Complete Time: 18:32 [facility] 07/25 17:30 Order name: Urine Dipstick-Ancillary (obtain specimen); Complete Time: 18:30 la1 07/25 18:10 Order name: Urine Dipstick-Ancillary; Complete Time: 18:35 EDMS Administered Medications: 18:29 Drug: NS 0.9% 500 ml Route: IV; Rate: bolus; Site: right antecubital; mg2 19:05 Follow up: IV Status: Completed infusion; IV Intake: 500ml aa1 18:30 Drug: Pepcid 20 mg Route: IVP; Site: right antecubital; mg2 19:30 Follow up: Response: No adverse reaction; Marked relief of symptoms aa1 18:30 Drug: Zofran (Ondansetron) 4 mg Route: IVP; Site: right antecubital; mg2 19:30 Follow up: Response: No adverse reaction; Marked relief of symptoms aa1 19:45 Drug: Potassium Effervescent Tablet 50 mEq Route: PO; aa1 20:00 Follow up: Response: Medication administered at discharge. aa1 Disposition: 07/26 07:39 Co-signature as Attending Physician, Pan Hurst MD I agree with the assessment and kdr plan of care. Disposition: 07/26/19 19:23 Discharged to Home. Impression: Influenza due to identified novel influenza A virus. - Condition is Stable. - Discharge Instructions: Fever, Adult, Influenza, Adult. - Prescriptions for Tamiflu 75 mg Oral Capsule - take 1 tablet by ORAL route every 12 hours for 5 days; 10 tablet. - Medication Reconciliation Form, Thank You Letter form. - Follow up: Private Physician; When: 2 - 3 days; Reason: Recheck today's complaints, Continuance of care, Re-evaluation by your physician. Follow up: Emergency Department; When: As needed; Reason: Trouble breathing. - Problem is new. - Symptoms have improved. Signatures: Dispatcher [employer] EDMS Val Guevara RN RN aa1 Pan Hurst MD MD kdr Attema, Lee, FNP-C [employer]-Cla1 José Miguel Devi RN RN jl7 Mack Sanchez RN RN mg2 Corrections: (The following items were deleted from the chart) 07/25 19:58 19:23 07/26/2019 19:23 Discharged to Home. Impression: Influenza due to identified aa1 novel influenza A virus. Condition is Stable. Forms are Medication Reconciliation Form, Thank You Letter, Antibiotic Education, Prescription Opioid Use. Follow up: Private Physician; When: 2 - 3 days; Reason: Recheck today's complaints, Continuance of care, Re-evaluation by your physician. Follow up: Emergency Department; When: As needed; Reason: Trouble breathing. Problem is new. Symptoms have improved. la1 20:01 19:58 07/26/2019 19:23 Discharged to Home. Impression: Influenza due to identified aa1 novel influenza A virus. Condition is Stable. Discharge Instructions: Fever, Adult, Influenza, Adult. Prescriptions for Tamiflu 75 mg Oral Capsule - take 1 tablet by ORAL route every 12 hours for 5 days; 10 tablet. and Forms are Medication Reconciliation Form, Thank You Letter. Follow up: Private Physician; When: 2 - 3 days; Reason: Recheck today's complaints, Continuance of care, Re-evaluation by your physician. Follow up: Emergency Department; When: As needed; Reason: Trouble breathing. Problem is new. Symptoms have improved. aa1
[2019-07-26] MEDS ORDERED: POTASSIUM 25 MEQ EFFERV TAB ONE (19:50)
--- NOTE | 2019-07-27 07:29 | EKG ---
Test Date: 2019-07-26 Test Time: 17:40:43 Effervescent Salts Compounder: MG MEASUREMENT RESULTS: Intervals: Rate: 72 WI: 144 QRSD: 72 QT: 392 QTc: 429 [place]: P: 60 WI: 144 QRS: 48 T: 29 INTERPRETIVE STATEMENTS: Normal sinus rhythm Normal ECG Compared to ECG 01/15/2018 02:51:31 No significant changes Electronically Signed On 07-27-19 07:27:51 CDT by Jesús Nelson
== END 2019-07-26 20:01 | disposition home or self-care (01) ==
LOC: ER 16:15
DX: J10.1 Influenza due to other identified influenza virus with other respiratory manifestations (principal); I10 Essential (primary) hypertension; E78.00 Pure hypercholesterolemia, unspecified
CPT/HCPCS: 96361; 93005; 85025; 80048; 36415; 83735; 85610; 80076; 84484; 83690; 83880; 87804 ×2; 71045; 96375; 96374; 99284; J7040; J2405; 81003; 81015

== ENCOUNTER 2019-10-07 11:01 | Emergency (ER) | payer OTHER ==
--- OUTSIDE RECORDS SUMMARY | 2019-10-07 11:05 | XMS REPORT ---
:1950 Author Organization [facility] t Address [address] [place] [address] Care Team Providers Name Role Phone Unavailable Unavailable Unavailable Problems Condition Condition Condition Status Onset Resolution Last Treating Co mments Source Name Details Category Date Date Treatment Clinician Date Glaucoma Gl[facility], eye, Memoria unspecifie unspecifie l d glaucoma d glaucoma Ou tpati type type ent Clinics Dry eyes Dry eyes Problem [facility] Tinea Tinea Problem Active [facility] un[facility]ium [facility]guium [facility] Seasonal Seasonal Diagnosis Active [facility] allergic allergic [facility] - rhinitis rhinitis Memori a due to due to l pollen pollen Outpati ent Clinics Other Other Problem Active [facility] osteoarthr osteoarthr Nida kes - itis itis Memoria involving involving l multiple multiple Outpat i joints joints ent Clinics Allergic Allergic Problem [facility] rhinitis rhinitis [facility] Other Other Problem Active [facility] 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 thy, thy, Outpati cervical cervical ent region region Clinics Hyperlipid Hyperlipid Diagnosis Active [facility] emia emia [facility] Acquired Acquired Problem Active [facility] hypothyroi hypothyroi [facility]ida kes - dism dism Memoria l Outpati ent Clinics Other Other Problem Active [facility] 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 l , cervical , cervical Ou tpati region region ent Clinics Pain in Pain in Problem Active [facility] left left [facility] - shoulder shoulder Memori a l Outpati ent Clinics Cervicalgi Cervicalgi Problem Active [facility] Hypertensi Hypertensi Diagnosis Active [facility] Pain in Pain in Problem Active [facility] right right [facility] - shoulder shoulder Memori a l Outpati ent Clinics Lesion of Lesion of Problem Active [facility] oral oral [facility] - mucosa mucosa Memoria l Outpati ent Clinics Decreased Decreased Problem Active [facility] hearing of hearing of Nida kes - right ear right ear Mono kulwant l Outpati ent Clinics History of History of Problem Active [facility] recent recent [facility] - fall fall Memoria l Outpati ent Clinics Family Family Problem Active [facility] history of history of Nida kes - diabetes diabetes Memori a mellitus mellitus l (DM) (DM) [facility] Family Family Problem Active [facility] history of history of Nida kes - colon colon Memoria cancer cancer l [facility] Gastroesop Gastroesop Problem Active [facility] hageal hageal [facility] - reflux reflux Memoria disease, disease, l esophagiti esophagiti Ou tpati s presence s presence en t not not Clinics specified specified Cervical Cervical Problem [facility] disc disc [facility] - herniation herniation Me moria l Outpati ent Clinics Abnormal Abnormal Problem Active [facility] mammogram mammogram Luke s - of left of left Memoria breast breast l Outpati ent Clinics Ingrown Ingrown Problem Active [facility] toenail of toenail of Nida kes - right foot right foot Me moria l [facility] Mild Mild Diagnosis Active [facility] atheroscle atheroscle Nida kes - rosis of rosis of Memori a both both l carotid carotid Outpati arteries arteries ent Clinics Mild Mild Problem Active [facility] carotid carotid [facility] - artery artery Memoria disease disease l Outpati ent Clinics Memory Memory Problem Active [facility] changes changes [facility] Primary Primary Problem Active [facility] insomnia insomnia [facility] Dizziness Dizziness Diagnosis Active [facility] Screening Screening Problem Active [facility] for for [facility] - malignant malignant Mono kulwant neoplasm neoplasm l of breast of breast Outp ati ent Clinics Osteoarthr Osteoarthr Diagnosis Active [facility] itis of itis of [facility] - spine with spine with Me moria radiculopa radiculopa l thy, thy, Outpati lumbar lumbar ent region region Clinics Pain in Pain in Diagnosis Active [facility] left knee left knee [facility] - Memoria l Outpati ent Clinics Pain in Pain in Diagnosis Active [facility] left hip left hip [facility] ent Clinics Sensation Sensation Diagnosis Active [facility] of chest of chest [facility] - tightness tightness Mono kulwant l [facility] ent Clinics Pain in Pain in Diagnosis Active [facility] right knee right knee Nida kes - Memoria l [facility] ent [facility] Allergies, Adverse Reactions, Alerts This patient has no known allergies or adverse reactions. Medications Ordered Filled Start Stop Current Ordering Indication Dosage Frequency Signature Comments Components Source Medication Medication Date Date Medication? Clinician (SIG) Name Name Levothyroxi Levothyroxi Yes Na Byrd [address] [facility] ne Sodium ne Sodium 1-27 in the Paige es - 00:00: morning on Memoria 00 an empty l stomach [facility] ent [facility] Omeprazole Omeprazole Yes Na Byrd [address] [facility] 9-19 [facility] - 00:00: Memoria 00 [facility] Atorvastati Atorvastati Yes Na Byrd [address] [facility] n Calcium n Calcium 8-14 [facility] - 00:00: Memoria [facility] ent [facility] Medrol Medrol Yes Na Byrd as [facility] 1-29 directed [facility] - 00:00: with food Memoria [facility] Cetirizine Cetirizine Yes Na Byrd [address] [facility] HCl HCl 1-07 [facility] - 00:00: Memoria 00 [facility] Tamiflu Tamiflu 2017-05 Yes Na Byrd [address] [facility] 2-18 [facility] - 00:00: Memoria 00 [facility] Montelukast Montelukast Yes Na Byrd [address] [facility] Sodium Sodium 9-10 in the [facility] - 00:00: evening Memoria 00 [facility] Coreg Coreg Yes Na Byrd [address] [facility]oria [facility] Amlodipine Amlodipine Yes Na Byrd TAKE [address] [facility] Besylate Besylate TABLET BY Nida kes - MOUTH Memoria DAILY [facility] Synthroid Synthroid Yes Na Byrd [address] [facility] on an [facility] - empty Memoria stomach in l the [facility] ent Clinics Amlodipine Amlodipine Yes Na Byrd TAKE [address] [facility] Besylate Besylate TABLET BY Nida kes - MOUTH Memoria EVERY DAY l Outpati ent Clinics Norvasc [facility] Yes Na Byrd [address] [facility] Out[facility] ent Clinics Carvedilol Carvedilol Yes Na Byrd TAKE [address] [facility] TABLET BY [facility] - MOUTH Memoria TWICE l DAILY. Outpati ent Clinics Mirtazapine Mirtazapine Yes Na Byrd [address] [facility] at bedtime [facility] ent Clinics Meclizine Meclizine Yes Na Byrd [address] [facility] HCl HCl as needed [facility] Mupirocin Mupirocin Yes Na Byrd [address] [facility] [address] applicatio [facility] - n to Memoria affected l area Outpati ent Clinics Claritin Claritin 2019- No Na Byrd [address] [facility] 12-07 [facility] - 00:00 Memoria :00 l Outpati ent Clinics Lipitor Lipitor 2018- Na Byrd [address] 08 [facility] - 00:00 Memoria :00 l Outpati ent Clinics Immunizations Ordered Filled Immunization Date Status Comments [facility] e Immunization Name Name FluAD FluAD 2019-01-[address] [facility] - 00:[facility]00 [facility] Procedures This patient has no known procedures. Encounters Start End Encounter Admission Attending Care Care Encounter Source Date/Time Date/Time Type Type Clinicians Facility Department ID 2019-09-10 2019-09-10 [facility] [id number] [facility] 08:40:00 08:40:00 [employer] [facility] Medicine Outpati ent Clinics 2019-06-11 2019-06-11 [facility] [id number] [facility] 16:20:00 16:20:00 [employer] [facility] Family Medicine l Medicine Outpati ent Clinics 2019-06-06 2019-06-06 [facility] [id number] [facility] 08:31:00 08:31:00 [employer] [facility] Medicine l Medicine Outpati ent Clinics 2019-03-26 2019-03-26 [facility] [id number] 19:57:00 19:57:00 [employer] [facility] Medicine Medicine Outpati ent Clinics 2019-03-06 2019-03-06 [facility] [id number] 09:00:00 09:00:00 [place] [employer] - [facility] Family Medicine l Medicine Outpati ent Clinics 2019-02-01 2019-02-01 [facility] [id number] [facility] 09:20:00 09:20:00 [place] [employer] - Drive [facility] Medicine l Medicine Outpati ent Clinics 2019-01-23 2019-01-23 [facility] [id number] 13:40:00 13:40:00 [place] [employer] - [facility] Family Medicine l Medicine Outpati ent Clinics 2018-12-18 2018-12-18 [facility] [id number] 16:04:00 16:04:00 [place] [employer] s - Drive [facility] Medicine l Medicine Outpati ent Clinics 2018-10-17 2018-10-17 [facility] [id number] [facility] 14[facility]20:00 14:20:00 [place] [employer] - [facility] Medicine l Medicine Outpati ent Clinics 2018-08-28 2018-08-28 [facility] [id number] [facility] 10:00:00 10:00:00 [place] [employer] - [facility] Medicine l Medicine Outpati ent Clinics 2018-06-15 2018-06-15 [facility] [id number] [facility] 09:31:00 09:31:00 [place] [employer] [facility] Medicine l Medicine Outpati ent Clinics 2018-06-13 2018-06-13 [facility] [id number] 15:00:00 15:00:00 [place] [employer] - [facility] Medicine l Medicine Outpati ent Clinics 2018-05-22 2018-05-22 [facility] [id number] [facility] 11:00:00 11:00:00 [place] [employer] - [facility] Medicine l Medicine Outpati ent Clinics 2018-05-03 2018-05-03 [facility] [id number] [facility] 10:02:00 10:02:00 [place] [employer] - [facility] Medicine l Medicine Outpati ent Clinics 2018-05-02 2018-05-02 [facility] [id number] 11:00:00 11:00:00 [place] [employer] [employer] [facility] Medicine Outpati ent Clinics 2018-02-09 2018-02-09 [facility] [id number] [facility] 18:18:00 18:18:00 [place] [employer] [employer] [facility] Medicine Outpati ent Clinics 2018-01-23 2018-01-23 [facility] [id number] [facility] 11:30:00 11:30:00 [place] [employer] [employer] [facility] Medicine Outpati ent Clinics 2017-12-21 2017-12-21 [facility] [id number] [facility] 10:33:00 10:33:00 [place] [employer] [facility] Medicine Outpati ent Clinics 2017-12-13 2017-12-13 [facility] [id number] [facility] 08:02:00 08:02:00 [place] [employer] [facility] Medicine Outpati ent Clinics 2017-11-01 2017-11-01 [facility] [id number] [facility] 10:00:00 10:00:00 [place] [employer] [facility] Medicine Outpati ent Clinics 2017-10-03 2017-10-03 [facility] [id number] [facility] 16:16:00 16:16:00 t [employer] [facility] Medicine Outpati ent Clinics Results This patient has no known results.
--- OUTSIDE RECORDS SUMMARY | 2019-10-07 11:05 | XMS REPORT ---
:1950 Author Organization [employer]Works Care Team Providers Name Role Phone Byrd, Na Provider Role Unavailable Allergies, Adverse Reactions, Alerts Substance Reaction Event Type N.K.D.A. 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01 Active Problem Lesion of oral mucosa K13.70 Active Problem Decreased hearing of right ear H91.91 Active Problem Cervicalgia M54.2 Active Medications Medication Code Code Instructions Start End Status Dosage System Date Date Omeprazole [facility] 41441655971 40 MG Orally Sept Active 1 ca psule Once a day 2018 Synthroid [facility] 25336804583 50 MCG Orally Active 1 ta blet on Once a day an empty stomach in the morning Coreg [facility] 01096022048 6.25 MG Orally Active 1 tab twice a day Montelukast [facility] 45715701141 10 mg Orally Active 1 t ablet in Sodium Once a day the evening Atorvastatin [facility] 15869065195 40 MG Orally Dec 27, Active 1 tablet Calcium Once a day 2018 Cetirizine HCl [facility] 08316029883 10 MG Orally May 22, Active 1 tablet Once a day in 2018 AM Amlodipine [facility] 05283916895 5 mg Active TAKE 1 TA BLET Besylate BY MOUTH EVERY DAY Lipitor [facility] 01366034223 20 MG Orally Active 1 table t Once a day Norvasc [facility] 72528498676 2.5 MG Orally Active 1 tabl et Once a day Coreg [facility] 45076442411 6.25 Orally Active 1 tab twice a day Carvedilol [facility] 18329893874 6.25 mg Active TAKE 1 TA BLET BY MOUTH TWICE DAILY. Tamiflu [facility] 15178184483 75 MG Orally May 02, Active 1 capsu le Twice a day 2017 Medrol [facility] 01852255870 4 MG Orally Jun 13, Active as direc yuriy daily 2018 with food Mirtazapine [facility] 99901542545 15 MG Orally Active 1 t ablet at Once a day bedtime Levothyroxine [facility] 99957127841 50 MCG Orally Jun 11, Active 1 tablet in Sodium Once a day 2019 the morning on an empty stomach Coreg [facility] 95921403182 6.25 Orally Active 1 tab twice a day Claritin [facility] 11104521513 10 MG Orally November Active 1 tabl et Once a day 2019 Meclizine HCl [facility] 73772879195 25 MG Orally Active 1 tablet as Once a day needed Amlodipine [facility] 40292283451 5 Orally Once a Active T SOFI[place] 1 TABLET Besylate day BY MOUTH DAILY Mupirocin [facility] 88998382605 2 % Externally Active 1 a pplication Three times a to affecte d day area Results No Known Results Summary Purpose eClinicalWorks Submission
--- OUTSIDE RECORDS SUMMARY | 2019-10-07 11:06 | XMS REPORT ---
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 Assessment Pain in left knee M25.562 Active Problem 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, lumbar region Problem Seasonal allergic rhinitis due to J30.1 Active pollen Assessment Pain in left hip M25.552 Active Problem Dizziness R42 Active Assessment 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, lumbar region Problem Mild carotid artery disease I77.9 Active Assessment Seasonal allergic rhinitis due to J30.1 Active pollen Problem Memory changes R41.3 Active Assessment Primary insomnia F51.01 Active Problem Primary insomnia F51.01 Active Assessment Hyperlipidemia E78.5 Active Problem Pain in left shoulder M25.512 Active Assessment Hypertension I10 Active Problem Pain in right shoulder M25.511 Activ e Assessment Sensation of chest tightness R07.89 Active Problem Other spondylosis with M47.22 Activ e radiculopathy, cervical region Assessment Mild atherosclerosis of both I65.23 Active carotid arteries Problem Other spondylosis with myelopathy, 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 Assessment Pain in right knee M25.561 Active Problem History of recent fall Z91.81 Activ e Assessment Dizziness R42 Active Problem Lesion of oral mucosa K13.70 Active Problem Decreased hearing of right ear H91.91 Active Problem Cervicalgia M54.2 Active Medications Medication Code Code Instructions Start End Status Dosage System Date Date Meclizine HCl [facility] 31195456806 25 MG Orally Active 1 tablet as Once a day needed Montelukast [facility] 35630070642 10 mg Orally Active 1 t ablet in Sodium Once a day the evening Claritin [facility] 53900566777 10 MG Orally Active 1 tabl et Once a day Lipitor [facility] 12418197702 20 MG Orally Active 1 table t Once a day Omeprazole [facility] 04632102114 40 MG Orally Sept Active 1 ca psule Once a day 2018 Atorvastatin [facility] 00028100129 40 MG Orally Dec 27, Active 1 tablet Calcium Once a day 2018 Mirtazapine [facility] 22511651401 15 MG Orally Active 1 t ablet at Once a day bedtime Amlodipine [facility] 12100138740 5 Orally Once a Active T [place]E 1 TABLET Besylate day BY MOUTH DAILY Norvasc [facility] 49572209544 2.5 MG Orally Active 1 tabl et Once a day Medrol [facility] 76630567110 4 MG Orally Jun 13, Active as direc yuriy daily 2018 with food Tamiflu [facility] 80110917947 75 MG Orally May 02, Active 1 capsu le Twice a day 2017 Carvedilol [facility] 03301294862 6.25 mg Active TAKE 1 TA BLET BY MOUTH TWICE DAILY. Coreg [facility] 06469210095 6.25 Orally Active 1 tab twice a day Coreg [facility] 32763896979 6.25 Orally Active 1 tab twice a day Mupirocin [facility] 79425674287 2 % Externally Active 1 a pplication Three times a to affecte d day area Amlodipine [facility] 74256715134 5 mg Active TAKE 1 TA BLET Besylate BY MOUTH EVERY DAY Cetirizine HCl [facility] 73940711847 10 MG Orally [place] 07, Active 1 tablet Once a day in 2019 AM Coreg [facility] 42937582494 6.25 MG Orally Active 1 tab twice a day Levothyroxine [facility] 98910896607 50 MCG Orally Active 1 tablet in Sodium Once a day the morning on an empty stomach Synthroid [facility] 46047846540 50 MCG Orally Active 1 ta blet on Once a day an empty stomach in the morning Results No Known Results Summary Purpose eClinicalWorks Submission
[2019-10-07] MEDS ORDERED: HYDROCODONE/APAP 5/325 MG TAB ONE (11:56)
--- NOTE | 2019-10-07 13:09 | RAD REPORT ---
EXAM DESCRIPTION: Shoulder Right 2 View - 10/07/2019 12:18 pm CLINICAL HISTORY: PAIN COMPARISON: Shoulder Right 2 View dated 09/19/2017 TECHNIQUE: Internal and external rotation views of the right shoulder were obtained. FINDINGS: There is no fracture or dislocation. AC joint is normal in appearance. Downward tilting o f the acromion is present. This may be associated with chronic shoulder impingement. No soft tissue c alcifications. Degenerative changes along the superior margin of the greater tuberosity have progress ed slightly from 2018. No acute right chest finding suspected. IMPRESSION: No acute right shoulder joint injury seen. Degenerative changes are present as detailed in are progressive from 2018.
--- NOTE | 2019-10-07 13:10 | RAD REPORT ---
EXAM DESCRIPTION: RAD - Hand Right 3 View - 10/07/2019 12:18 pm CLINICAL HISTORY: PAIN, fall COMPARISON: No comparisonsNone. FINDINGS: No fracture is identified. There is no dislocation or periosteal reaction noted. No forei gn body or significant soft tissue abnormality. IMPRESSION: Negative right hand examination for acute finding.
--- NOTE | 2019-10-07 13:11 | RAD REPORT ---
EXAM DESCRIPTION: RAD - Hip Right 2 View - 10/07/2019 12:18 pm CLINICAL HISTORY: PAIN COMPARISON: No comparisons FINDINGS: AP and frog-leg views of the right hip were obtained. There is no fracture or dislocation. No AVN or focal head abnormality. No acute or destructive bony p rocess seen. IMPRESSION: Negative right hip examination for acute or significant findings.
--- NOTE | 2019-10-07 13:21 | EDPHYS ---
Physician Documentation [facility] Name: Kayla Babcock Age: 69 yrs Sex: Female : 1950 Arrival Date: 10/07/2019 Time: 11:06 Bed 7 Private MD: Lissa Byrd ED Physician Jignesh Boyd HPI: 10/06 11:47 This 69 yrs old Female presents to ER via Ambulatory with complaints of Fall pm1 Injury, Arm Injury. 11:47 Details of fall: The patient fell from an upright position, while walking. Onset: The pm1 symptoms/episode began/occurred 2 hour(s) ago. Associated injuries: The patient sustained anterior aspect of right shoulder, pain, Right wrist and right hand, pain. The patient has not experienced similar symptoms in the past. Patient with chronic bilateral hip pain with right greater than left. Patient was carrying out the trash walking with a limp that favored her right side. Patient lost her balance and fell over on her right side. No head injury, headache, neck pain, LOC. Patient presents with pain to right hand, right wrist and right hip. Patient with abrasion to right knee. Historical: - Allergies: 11:34 No Known Allergies; hb - PMHx: 11:34 High Cholesterol; Hypertension; hb - PSHx: 11:34 right overy sx; hb - Immunization history:: Adult Immunizations up to date. - Social history:: Smoking status: Patient denies any tobacco usage or history of. ROS: 11:47 Constitutional: Negative for fever, chills, and weight loss. pm1 11:47 Neck: Negative for injury, pain, and swelling, Cardiovascular: Negative for chest pain, palpitations, and edema, Respiratory: Negative for shortness of breath, cough, wheezing, and pleuritic chest pain, Abdomen/GI: Negative for abdominal pain, nausea, vomiting, diarrhea, and constipation, Back: Negative for injury and pain, : Negative for injury, bleeding, discharge, and swelling, Neuro: Negative for headache, weakness, numbness, tingling, and seizure. 11:47 MS/extremity: Positive for pain, of the right shoulder, right wrist, right hand. 11:47 Skin: Positive for abrasion(s), of the right knee. Exam: 11:47 Constitutional: This is a well developed, well nourished patient who is awake, alert, pm1 and in no acute distress. Head/Face: Normocephalic, atraumatic. Eyes: Pupils equal round and reactive to light, extra-ocular motions intact. Lids and lashes normal. Conjunctiva and sclera are non-icteric and not injected. Cornea within normal limits. Periorbital areas with no swelling, redness, or edema. Neck: Trachea midline, no thyromegaly or masses palpated, and no cervical lymphadenopathy. Supple, full range of motion without nuchal rigidity, or vertebral point tenderness. No Meningismus. Chest/axilla: Normal chest wall appearance and motion. Nontender with no deformity. No lesions are appreciated. 11:47 Abdomen/GI: Soft, non-tender. No guarding or rebound. No evidence of tenderness throughout. Back: No spinal tenderness. No costovertebral tenderness. Full range of motion. 11:47 Cardiovascular: Exam negative for acute changes, Rate: normal, Rhythm: regular, Pulses: no pulse deficits are appreciated. 11:47 Respiratory: Exam negative for acute changes, respiratory distress, shortness of breath. 11:47 Musculoskeletal/extremity: Extremities: grossly normal except: noted in the right shoulder, dorsal aspect of right wrist, 4th and 5th knuckles: tenderness, noted in the upper lateral right quadriceps: tenderness, no evidence of decreased ROM, deformity. 11:47 Skin: Appearance: normal except for affected area, injury, abrasion(s), very small abrasion noted, of the right knee. Vital Signs: 11:33 BP 162 / 69; Pulse 71; Resp 16; Temp 97.3; Pulse Ox 100% on R/A; Weight 63.96 kg; hb Height 5 ft. 2 in. (157.48 cm); Pain 10/10; 11:33 Body Mass Index 25.79 (63.96 kg, 157.48 cm) hb MDM: 11:36 Patient medically screened. pm1 11:57 Data reviewed: vital signs. Data interpreted: Pulse oximetry: on room air is 100 %. pm1 Interpretation: normal. 13:19 Counseling: I had a detailed discussion with the patient and/or guardian regarding: the pm1 historical points, exam findings, and any diagnostic results supporting the discharge/admit diagnosis, radiology results, the need for outpatient follow up, to return to the emergency department if symptoms worsen or persist or if there are any questions or concerns that arise at home. 10/06 11:42 Order name: Hand Right 3 View XRAY; Complete Time: 13:18 pm1 10/06 11:42 Order name: Hip Right 2 View XRAY; Complete Time: 13:18 pm1 10/06 11:42 Order name: Shoulder Right (2 View) XRAY; Complete Time: 13:18 pm1 10/06 13:39 Order name: Wrist Splint; Complete Time: 14:21 pm1 10/06 13:39 Order name: Sling; Complete Time: 14:21 pm1 Administered Medications: 11:50 Drug: [place] 5 mg-325 mg 1 tabs Route: PO; em 14:03 Follow up: Response: No adverse reaction; Marked relief of symptoms em Disposition: 10/07/19 13:20 Discharged to Home. Impression: Fall on same level from slipping, tripping and stumbling, Pain in right hip, Pain in right wrist, Pain in right hand, Abrasion, right knee. - Condition is Stable. - Discharge Instructions: Fall Prevention in the Home, Shoulder Pain, Wrist Pain, Hip Pain, How to Use a Sling. - Prescriptions for Tylenol- Codeine #3 300-30 mg Oral Tablet - take 2 tablets by ORAL route every 6 hours As needed; 20 tablet. - Medication Reconciliation Form, Thank You Letter, Antibiotic Education, Prescription Opioid Use form. - Follow up: Emergency Department; When: As needed; Reason: Worsening of condition. Follow up: Private Physician; When: 2 - 3 days; Reason: Recheck today's complaints, Continuance of care, Re-evaluation by your physician. - Problem is new. - Symptoms have improved. Signatures: Dispatcher [employer] Jun Judd RN RN em Agusto Gonzalez NP PETROLEUM ANALYST pm1 Erika Rodarte RN RN Corrections: (The following items were deleted from the chart) 14:28 13:20 10/07/2019 13:20 Discharged to Home. Impression: Fall on same level from em slipping, tripping and stumbling; Pain in right hip; Pain in right wrist; Pain in right hand; Abrasion, right knee. Condition is Stable. Forms are Medication Reconciliation Form, Thank You Letter, Antibiotic Education, Prescription Opioid Use. Follow up: Emergency Department; When: As needed; Reason: Worsening of condition. Follow up: Private Physician; When: 2 - 3 days; Reason: Recheck today's complaints, Continuance of care, Re-evaluation by your physician. Problem is new. Symptoms have improved. pm1
--- NOTE | 2019-10-07 13:21 | ER ---
Nurse's Notes [facility] Name: Kayla Babcock Age: 69 yrs Sex: Female : 1950 Arrival Date: 10/07/2019 Time: 11:06 Bed 7 Private MD: Lissa Byrd Diagnosis: Fall on same level from slipping, tripping and stumbling;Pain in right hip;Pain in right wrist;Pain in right hand;Abrasion, right knee Presentation: 10/06 11:30 Chief complaint: Right hip and right arm pain after mechanical fall from standing hb approx 2 hrs [employer]. Pt reports bilateral hip pain x 1 month, pain is worse on right after fall today. Denies LOC. Bruising and abrasion noted to right knee in triage. Care prior to arrival: None. Mechanism of Injury: Fall from standing position. 11:30 Method Of Arrival: Ambulatory hb 11:30 Acuity: GUIDO 3 hb 11:33 Coronavirus screen: Proceed with normal triage. Ebola Screen: No symptoms or risks hb identified at this time. Initial Sepsis Screen: Does the patient meet any 2 criteria? No. Patient's initial sepsis screen is negative. Does the patient have a suspected source of infection? No. Patient's initial sepsis screen is negative. Risk Assessment: Do you want to hurt yourself or someone else? Patient reports no desire to harm self or others. Onset of symptoms was October 07, 2019. Historical: - Allergies: 11:34 No Known Allergies; hb - PMHx: 11:34 High Cholesterol; Hypertension; hb - PSHx: 11:34 right overy sx; hb - Immunization history:: Adult Immunizations up to date. - Social history:: Smoking status: Patient denies any tobacco usage or history of. Screenin:50 Abuse screen: Denies threats or abuse. Nutritional screening: No deficits noted. em Tuberculosis screening: No symptoms or risk factors identified. Fall Risk None identified. Primary Survey: 11:34 NO uncontrolled hemorrhage observed. A: The patient is alert. Airway: patent. hb Breathing/Chest: Respiratory pattern: regular, Respiratory effort: spontaneous, unlabored, Chest inspection: symmetrical rise and fall of the chest. Circulation: Skin color: pink, Skin temperature: warm, dry. Disability Alert. Exposure/Environment: There is no evidence of uncontrolled external bleeding. Assessment: 11:50 General: Appears in no apparent distress. comfortable, Behavior is calm, cooperative, em appropriate for age. Pain: Complains of pain in right knee and right arm and anterior aspect of right shoulder Pain currently is 10 out of 10 on a pain scale. Neuro: Level of Consciousness is awake, alert, obeys commands, Oriented to person, place, time, situation, Appropriate for age. Cardiovascular: Capillary refill < 3 seconds Patient's skin is warm and dry. Respiratory: Airway is patent Respiratory effort is even, unlabored, Respiratory pattern is regular, symmetrical. GI: Derm: Skin is intact, is healthy with good turgor, Skin is pink, warm \T\ dry. Musculoskeletal: Range of motion: limited in right shoulder, right wrist and right knee. 13:00 Reassessment: Patient appears in no apparent distress at this time. Patient and/or em family updated on plan of care and expected duration. Pain level reassessed. Patient is alert, oriented x 3, equal unlabored respirations, skin warm/dry/pink. Vital Signs: 11:33 BP 162 / 69; Pulse 71; Resp 16; Temp 97.3; Pulse Ox 100% on R/A; Weight 63.96 kg; hb Height 5 ft. 2 in. (157.48 cm); Pain 10/10; 11:33 Body Mass Index 25.79 (63.96 kg, 157.48 cm) hb ED Course: 11:06 Patient arrived in ED. am2 11:06 Lissa Byrd MD is Private Physician. am2 11:33 Triage completed. hb 11:34 Arm band placed on. hb 11:36 Agusto Gonzalez NP is PHCP. pm1 11:36 Jignesh Boyd MD is Attending Physician. pm1 11:38 Jun Story, MARIAN is Primary Nurse. em 11:50 Patient has correct armband on for positive identification. Bed in low position. Call em light in reach. Pulse ox on. NIBP on. 12:18 Hand Right 3 View XRAY In Process Unspecified. EDMS 12:19 Hip Right 2 View XRAY In Process Unspecified. EDMS 12:19 Shoulder Right (2 View) XRAY In Process Unspecified. EDMS 14:20 Orthoglass splint: Volar splint applied on right arm capillary refill <3 seconds Sling dh3 applied to right arm. 14:26 No provider procedures requiring assistance completed. Patient did not have IV access em during this emergency room visit. Administered Medications: 11:50 Drug: [place] 5 mg-325 mg 1 tabs Route: PO; em 14:03 Follow up: Response: No adverse reaction; Marked relief of symptoms em Outcome: 13:20 Discharge ordered by . pm1 14:27 Discharged to home ambulatory. em 14:27 Condition: good 14:27 Discharge instructions given to patient, Instructed on discharge instructions, follow up and referral plans. no driving heavy equipment, medication usage, Demonstrated understanding of instructions, follow-up care, medications, splint care, Prescriptions given X 1. 14:28 Patient left the ED. em Signatures: Dispatcher [employer] Jun Judd RN RN Agusto Espinosa, DRUM BUILDER DRUM BUILDER pm1 Erika Rodarte RN RN hb Moreno, Amanda 2 Mary Macias 3
[2019-10-07 14:37] VITALS: BP 162/69; TEMP 97.3; O2SAT 100
== END 2019-10-07 14:28 | disposition home or self-care (01) ==
LOC: ER 11:01
DX: M25.551 Pain in right hip (principal); M25.531 Pain in right wrist; M25.541 Pain in joints of right hand; S80.211A Abrasion, right knee, initial encounter; W01.0XXA Fall on same level from slipping, tripping and stumbling without subsequent striking against object, initial encounter; Y93.01 Activity, walking, marching and hiking
CPT/HCPCS: 99284

== ENCOUNTER 2020-04-24 08:49 | Emergency (ER) | payer OTHER ==
--- OUTSIDE RECORDS SUMMARY | 2020-04-24 09:15 | XMS REPORT ---
:1950 Author Organization 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 742793852 osteoarthritis involving multiple joints Problem Dry eyes H04.123 Active 828251517 Problem Seasonal allergic J30.1 Active 06986733 rhinitis due to pollen Problem Family history of Z83.3 Active 448573255 diabetes mellitus (DM) Problem Tinea unguium B35.1 Active 107893691 Problem 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 Active 55148830 eye, unspecified glaucoma type Problem Mild I65.23 Active 310254940 atherosclerosis of both carotid arteries Problem Hyperlipidemia E78.5 Active 82208460 Problem Abnormal mammogram R92.8 Active 658448799 of left breast Problem Allergic rhinitis J30.9 Active 79269689 Problem Acquired E03.9 Active 377912435 hypothyroidism Problem GERD K21.9 Active 150049390 (gastroesophageal reflux disease) Problem Cervicalgia M54.2 Active 00875019 Problem Pain in right M25.511 Active 95805397 shoulder Problem Decreased hearing H91.91 Active 160518057 of right ear Problem History of recent Z91.81 Active 248501440 fall Problem Cervical disc M50.20 Active 671198953 herniation Problem Lesion of oral K13.70 Active 9364182963628506 mucosa Problem Abnormal mammogram R92.8 Active 296457647 Problem Hypertension I10 Active 81588014 Problem Ingrown toenail of L60.0 Active 049669908 right foot Problem Mild carotid I77.9 Active 701370298 artery disease Problem Dizziness R42 Active 244741395 Problem Primary insomnia F51.01 Active 7142586 Problem Skipped heart I45.9 Active 943817889 beats Problem 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, cervical region Problem Elevated blood I10 Active 91591768 pressure reading with diagnosis of hypertension Problem Other spondylosis M47.22 Active 860542493 with radiculopathy, cervical region Problem Pain in left M25.512 Active 81154958 shoulder Problem Memory changes R41.3 Active 441590870 Problem Gastroesophageal K21.9 Active 525188806 reflux disease, esophagitis presence not specified Problem Screening for Z12.39 Active 578213198 malignant neoplasm of breast Problem 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 [address] [facility] [address] [facility] Mar, Na Byrd Acq uired hypothyroidism Family Medicine [address], E03.9 ; [place] [address] ; Hyperlipidem ia E78.5 ; Trochanteric bu rsitis, right hip M70.6 1 ; Trochanteric bu rsitis, left hip M70.62 ; Primary insomni a F51.01 and Seasonal al lergic rhinitis due to pollen J30.1 IMMUNIZATIONS Vaccine Route Administration Date Status FluAD IM Intramuscular Mar 11, 2020 Administered FluAD IM Intramuscular Jan 23, 2019 Administered Kenalog (Triamcinolone) IM Intramuscular October 23, 2019 Adminis tered Kenalog (Triamcinolone) Unknown Jun 13, 2018 Administ radha Kenalog (Triamcinolone) IM Intramuscular May 22, 2018 Adminis tered SOCIAL HISTORY Tobacco Use: Social History Observation Description Date Details (start date - stop date) Never Smoker Sex Assigned At : Social History Observation Description Sex Assigned At Unknown Alcohol Screen Question Answer Notes Did you have a drink containing alcohol in the past year? No Points 0 Interpretation Negative Tobacco Use/Smoking Question Answer Notes Are you a never smoker Additional Findings: Tobacco Non-User Current non-smoker REASON FOR REFERRAL No Information VITAL SIGNS Height 60.00 in Mar, Weight 145 lbs Mar, BMI 28.32 kg/m2 Mar, MEDICATIONS Medication SIG (Take, Route, Notes Start Date End Date Status Frequency, Duration) Meloxicam 7.5 MG 1 tablet prn pain Mar,Jun, Active Orally Once a day for 90 day(s) Losartan Potassium 100 MG 1 tablet Orally Once Active a day for 90 days Losartan Potassium 100 MG TAKE 2 TABLET BY Active MOUTH EVERY DAY Orally Once a day for 90 days Montelukast Sodium 10 mg 1 tablet in the Active evening Orally Once a day for 90 Levothyroxine Sodium 50 1 tablet in the Active MCG morning on an empty stomach Orally Once a day for 90 days Meclizine HCl 25 MG 1 tablet as needed Active Orally Once a day for 30 day(s) Levothyroxine Sodium 50 TAKE 1 TABLET EVERY Active MCG MORNING ON AN EMPTY STOMACH Lipitor 20 MG TAKE 1 TABLET EVERY Ac tive DAY Claritin 10 MG 1 tablet Orally Once Active a day for 90 days Mirtazapine 15 MG 1 tablet at bedtime Active Orally Once a day for 90 days Carvedilol 12.5 MG 1 tablet with food Dec, Active Orally Twice a day for 90 days Montelukast Sodium 10 MG 1 tablet Orally Once Active a day at bedtime for 90 days Lipitor 20 MG 1 tablet Orally Once A ctive a day for 90 days Coreg 12.5 MG 1 tab Orally twice a A ctive day for 90 days Omeprazole 40 MG 1 capsule Orally Once Jan, Active a day for 90 days Atorvastatin Calcium 40 1 tablet Orally Once Dec, Active MG a day for 90 days PROCEDURES No Information RESULTS No Results REASON FOR VISIT 4 wk f/u, high blood pressure, thigh hip pain MEDICAL (GENERAL) HISTORY Type Description Date Medical History Hypertension Medical History Hyperlipidemia Medical History Allergic rhinitis Medical History GERD (gastroesophageal reflux disease) Medical History Family history of diabetes mellitus (DM) Medical History Family history of colon cancer Surgical History left ovary tumor removed 1982 Goals Section No Information Health Concerns No Information MEDICAL EQUIPMENT No Information MENTAL STATUS No Information FUNCTIONAL STATUS No Information ASSESSMENTS Encounter Date Diagnosis Assessment Treatment Notes Treatment Notes Clinical Notes Mar, Acquired -Take thyroid hypothyroidism medication on (ICD-10 - E03.9) empty stomach first thing in AM with water. Avoid calcium, iron, and milk with medication. -Wait 60mintues before breakfast as thyroid medication binds with many foods/medications. - Recognize symtoms of hyperthyroidism/th yroid over replacement and call clinic if any symptoms develop or problems arise. Will monitor TFTs and adjust levothyroxine if necessary. Mar, Hypertension (ICD-10 Maintian a low -- - I10) salt DASH diet, Advised delfina ent exercise, weight to take los iggy loss and decrease 50 mg twic e a day stress from 100 mg in recommended. Keep the a.m. t o try BP log and will to better co ntrol review next visit. bedtime a nd If blood pressure morning bl ood consistently above pressures . She 140/90 return to will contin ue clinic for carvedilol 12.5 adjustment of mg twice daily . meds. Try to quit At next vi sit if smoking if you blood pressur e currently smoke. log reviews Decrease caffeine elevated b lood intake if pressures in th e possible. 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 carvedilol to 25 - do not read on mg at bedti me. phone read bible by book as may strain eyes- Mar, Hyperlipidemia low fat diet, (ICD-10 - E78.5) decrease fast food and fried foods. Increase fruit and vegetable intake. exercise as tolerated 30minutes per day at least 3 days a week. May take fish oil 1000mg twice daily to help increase good cholesterol (HDL). Mar, Trochanteric Showing -- bursitis, right hip trochanteric (ICD-10 - M70.61) bursitis-Reviewed patient's MRI from October 2019, will rx trial of meloxicam - pt advised to f/u with for possible steorid injection to troachanteric bursa if no improvment with meloxicam adn continue tylenol no more than 2000mg a day prn pain. Mar, Trochanteric advised pt to f/u bursitis, left hip with ortho (ICD-10 - M70.62) for eval possible steroid injection. Mar, Primary insomnia (ICD-10 - F51.01) Mar, Seasonal allergic Allergies- avoid rhinitis due to triggers. Use pollen (ICD-10 - zyrtec or claritin J30.1) otc once daily in AM to help control watery itchy eyes and runny nose. Use Flonase nasal spray two sprays once a day to help decrease inflammation and decrease nasal drainage/post nasal drip. Use saline nasal mist or irrigation as directed. Mar, Other cont f/u with Total time spe nt cardiology by provider during this virtual visit w as 30 minutes. Als o, time was spent counseling and coordinating ca re including but n ot limited to discussion of test results, diagnostic or treatment recommendations , prognosis, risk s and benefits of management options, instructions, education, compliance and or risk reduction. PLAN OF TREATMENT Medication Medication Name Sig Start Date Stop Date Levothyroxine Sodium 50 MCG 1 tablet in the morning on an empty stomach Orally Once a day for 90 days Coreg 12.5 MG 1 tab Orally twice a day for 90 days Montelukast Sodium 10 MG 1 tablet Orally Once a day at bedtime for 90 days Mirtazapine 15 MG 1 tablet at bedtime Orally Once a day for 90 days Meloxicam 7.5 MG 1 tablet prn pain Orally Once a Mar, Jun, day for 90 day(s) Claritin 10 MG 1 tablet Orally Once a day for 90 days Losartan Potassium 100 MG TAKE 2 TABLET BY MOUTH EVERY DAY Orally Once a day for 90 days Losartan Potassium 100 MG 1 tablet Orally Once a day for 90 days Lipitor 20 MG 1 tablet Orally Once a day for 90 days Treatment Notes Assessment Notes Clinical Notes Acquired hypothyroidism -Take thyroid medication on empty stomach first thing in AM with water. Avoid calcium, iron, and milk with medication. -Wait 60mintues before breakfast as thyroid medication binds with many foods/medications. - Recognize symtoms of hyperthyroidism/thyroid over replacement and call clinic if any symptoms develop or problems arise. Will monitor TFTs and adjust levothyroxine if necessary. Hypertension Maintian a low salt DASH --04/09/20 Advi sed patient diet, exercise, weight loss to take losa rtan 50 mg and decrease stress twice a day from 100 mg in recommended. Keep BP log and the a.m. to try to better will review next visit. If control bedti me and blood pressure consistently morning bloo d pressures. above 140/90 return to clinic She will c ontinue for adjustment of meds. Try carvedilol 1 2.5 mg twice to quit smoking if you daily. At next v isit if currently smoke. 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 Hyperlipidemia low fat diet, decrease fast food and fried foods. Increase fruit and vegetable intake. exercise as tolerated 30minutes per day at least 3 days a week. May take fish oil 1000mg twice daily to help increase good cholesterol (HDL). Trochanteric bursitis, right Showing trochanteric -- hip bursitis-Reviewed patient's MRI from October 2019, will rx trial of meloxicam - pt advised to f/u with for possible steorid injection to troachanteric bursa if no improvment with meloxicam adn continue tylenol no more than 2000mg a day prn pain. Trochanteric bursitis, left advised pt to f/u with ortho hip for eval possible steroid injection. Seasonal allergic rhinitis due Allergies- avoid triggers. to pollen Use zyrtec or claritin otc once daily in AM to help control watery itchy eyes and runny nose. Use Flonase nasal spray two sprays once a day to help decrease inflammation and decrease nasal drainage/post nasal drip. Use saline nasal mist or irrigation as directed. Next Appt Details Provider Name:Lissa Byrd, 2020-06-02 09:3 0:00 AM, [address], [address], [place], [address], Provider Name:Lissa Byrd, 2020-06-10 10:0 0:00 AM, [address], [address], [place], [address], Insurance Providers Payer Name Payer Address Payer Insured Patient Coverage Cover age End Phone Name Relationship to Start Date Noman e Insured [employer] [address] [address] [phone] Kayla Babcock self 2019 [place]IC[place] [phone]
--- OUTSIDE RECORDS SUMMARY | 2020-04-24 09:15 | XMS REPORT | Continuity of Care Document ---
:[address] [facility] t Address [address] [place] [address] Care Team Providers Name Role Phone Joel Chand MD Attending Clinician Problems This patient has no known problems. Allergies, Adverse Reactions, Alerts This patient has no known allergies or adverse reactions. Medications Ordered Filled Start Stop Current Ordering Indication Dosage Frequency Signature Comments Components Source Medication Medication Date Date Medication? Clinician (SIG) Name Name Losartan Losartan Yes Na Byrd [address] [facility] Potassium Potassium 8-07 [facility] Carvedilol Carvedilol Yes Na Byrd [address] [facility] 8-03 with food [facility] 00 [facility] Omeprazole Omeprazole Yes Na Byrd [address] [facility] 9-19 [facility]: [facility] 00 [facility] Atorvastati Atorvastati Yes Na Byrd [address] [facility] n Calcium n Calcium 8-14 [facility]: [facility] 00 [facility] Montelukast Montelukast Yes Na Byrd [address] [facility] Sodium Sodium 9-10 in the [facility] - 00:00: evening [facility] 00 [facility] Mirtazapine Mirtazapine Yes Na Byrd [address] [facility] at bedtime [facility] Meclizine Meclizine Yes Na Byrd [address] [facility] HCl HCl as needed [facility] Coreg Coreg Yes Na Byrd [address] [facility] Levothyroxi Levothyroxi Yes Na Byrd [address] [facility] ne Sodium ne Sodium in the [place] es - morning on Memoria an empty l stomach [facility] Levothyroxi Levothyroxi Yes Na Byrd TAKE [address] [facility] ne Sodium ne Sodium TABLET [place] es - EVERY Memoria MORNING ON l AN EMPTY [facility] STOMACH ent Clinics Claritin Claritin 2019- No Na Byrd [address] [facility] 12-07 [facility]:00 [facility] :00 [facility] Lipitor Lipitor 2018- No Na Byrd [address] 12-27 [facility] - 00:00 [facility] :00 [facility] Immunizations Ordered Filled Immunization Date Status Comments [facility] e Immunization Name Name FluAD FluAD 2019-01-[address] [facility] Procedures This patient has no known procedures. Encounters Start End Encounter Admission Attending Care Care Encounter Source Date/Time Date/Time Type Type Clinicians Facility Department ID 2020-04-09 2020-04-09 Outpatient [facility] [id number] [facility] 2020-03-14 2020-03-14 Outpatient [facility] [id number] [facility] 2020-03-11 2020-03-11 Outpatient [facility] [id number] [facility] 2020-02-12 2020-02-12 Outpatient [facility] [id number] [facility] 2020-01-18 2020-01-18 [facility] [id number] [facility] 07:54:00 07:54:00 t [facility] 2019-12-27 2019-12-27 [facility] [id number] [facility] 10:27:00 10:27:00 t [employer] [facility] 2019-12-21 2019-12-21 [facility] [id number] 16:40:00 16:40:00 t [employer] [facility] ent [facility] 2019-12-21 2019-12-21 [facility] [id number] 13:55:00 13:55:00 t [employer] [facility] 2019-12-15 2019-12-15 [facility] [id number] 19:43:00 19:43:00 t [employer] [facility] 2019-12-10 2019-12-10 [facility] [id number] 11:00:00 11:00:00 t [facility] 2019-12-10 2019-12-10 [facility] [id number] 08:00:00 08:00:00 t [employer] [facility] 2019-12-03 2019-12-03 [facility] [id number] 21:41:00 21:41:00 t [facility] 2019-11-30 2019-11-30 [facility] [id number] 09:54:00 09:54:00 t [facility] 2019-11-19 2019-11-19 [facility] [id number] 13:22:00 13:22:00 t [facility] [place] [facility] Clinics 2019-11-06 2019-11-06 [facility] [id number] 12:04:00 12:04:00 t [facility] 2019-10-30 2019-10-30 [facility] [id number] 11:09:00 11:09:00 t [facility] 2019-10-25 2019-10-25 [facility] [id number] 11:33:00 11:33:00 t [facility] 2019-10-23 2019-10-23 [facility] [id number] 17:00:00 17:00:00 t [employer] [facility] 2019-10-23 2019-10-23 [facility] [id number] 10:00:00 10:00:00 t [employer] [facility] 2019-10-18 2019-10-18 [facility] [id number] [facility] 09:00:00 09:00:00 t [facility] 2019-10-09 2019-10-09 Juan Chand [facility] [id number] 00:00:00 00:00:00 (Out) Peter Day [id number] [place] [id number] Professio [id number] [address] 2019-09-10 2019-09-10 [facility] [id number] 08:40:00 08:40:00 t [facility] 2019-06-11 2019-06-11 [facility] [id number] 16:20:00 16:20:00 t [employer] [facility] ent Clinics 2019-06-06 2019-06-06 [facility] [id number] [facility] 08:31:00 08:31:[address] [facility] Medicine l Medicine Outpati ent Clinics 2019-03-26 2019-03-26 [facility] [id number] 19:57:00 19:57:00 [place] [employer] [place] s - Drive [facility] Medicine l Medicine Outpati ent Clinics 2019-03-06 2019-03-06 [facility] [id number] 09:00:00 09:00:00 [place] [employer] [place] s - Drive [facility] Medicine l Medicine Outpati ent Clinics 2019-02-01 2019-02-01 [facility] [id number] 09:20:00 09:20:00 [place] s - Drive [facility] Medicine l Medicine Outpati ent Clinics 2019-01-23 2019-01-23 [facility] [id number] 13:40:00 13:40:00 [place] s - Drive [facility] Medicine l Medicine Outpati ent Clinics 2018-12-18 2018-12-18 [facility] [id number] 16:04:00 16:04:00 [place] [employer] s - Drive [facility] Medicine l Medicine Outpati ent Clinics 2018-10-17 2018-10-17 [facility] [id number] [facility] 14:20:00 14:20:00 [place] [address] - Drive [facility] Medicine l Medicine Outpati ent Clinics 2018-08-28 2018-08-28 [facility] [id number] [facility] 10:00:00 10:00:00 [place] - Drive [facility] Medicine l Medicine Outpati ent Clinics 2018-06-15 2018-06-15 [facility] [id number] 09:31:00 09:31:00 [place] - Drive [facility] Medicine l Medicine Outpati ent Clinics 2018-06-13 2018-06-13 [facility] [id number] 15:00:00 15:00:[address] - [address] [facility] Medicine l Medicine Outpati ent Clinics 2018-05-22 2018-05-22 [facility] [id number] [address] 11:00:00 11:00:[address] - [address] [facility] Medicine l Medicine Outpati ent Clinics 2018-05-03 2018-05-03 [facility] [id number] 10:02:00 10:02:[address] - [address] [facility] Medicine l Medicine Outpati ent Clinics 2018-05-02 2018-05-02 [facility] [id number] 11:00:00 11:00:00 [place] Luke s - Drive [facility] l Medicine Outpati ent Clinics 2018-02-09 2018-02-09 [facility] [id number] 18:18:00 18:18:00 [place] [facility] - Drive [facility] Medicine Outpati ent Clinics 2018-01-23 2018-01-23 [facility] [id number] [address] 11:30:00 11:30:00 [place] s - Drive [facility] Medicine l Medicine Outpati ent Clinics 2017-12-21 2017-12-21 [facility] [id number] [facility] 10:33:00 10:33:00 [place] [facility] [employer] s - Drive [facility] Medicine Outpati ent Clinics 2017-12-13 2017-12-13 [facility] [id number] 08:02:00 08:02:00 [place] s - Drive [facility] Medicine Outpati ent Clinics 2017-11-01 2017-11-01 [facility] [id number] [facility] 10:00:00 10:00:[address] [employer] s - Drive [facility] Medicine Outpati ent Clinics 2017-10-03 2017-10-03 [facility] [id number] [facility] 16:16:00 16:16:00 [place] [facility] - Drive [facility] Medicine Outpati ent Clinics Results This patient has no known results.
--- OUTSIDE RECORDS SUMMARY | 2020-04-24 09:15 | XMS REPORT ---
:1950 Author Organization [facility] Address [address] [place] [address] Care Team Providers Name Role Phone Byrd Unavailable [phone] PROBLEMS Type Condition ICD9-CM [id number] Onset Condition SNOMED Code Notes Code Code Dates Status Problem Family history of Z80.0 Active 265548788 colon cancer Problem Other M15.8 Active 125562228 osteoarthritis involving multiple joints Problem Dry eyes H04.123 Active 450880620 Problem Seasonal allergic J30.1 Active 14502101 rhinitis due to pollen Problem Family history of Z83.3 Active 331513902 diabetes mellitus (DM) Problem Tinea unguium B35.1 Active 706052121 Problem 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 Active 94227295 eye, unspecified glaucoma type Problem Mild I65.23 Active 265304079 atherosclerosis of both carotid arteries Problem Hyperlipidemia E78.5 Active 68091856 Problem Abnormal mammogram R92.8 Active 790960592 of left breast Problem Allergic rhinitis J30.9 Active 76417597 Problem Acquired E03.9 Active 330308059 hypothyroidism Problem GERD K21.9 Active 042291198 (gastroesophageal reflux disease) Problem Cervicalgia M54.2 Active 84880500 Problem Pain in right M25.511 Active 63713994 shoulder Problem Decreased hearing H91.91 Active 269043699 of right ear Problem History of recent Z91.81 Active 160117560 fall Problem Cervical disc M50.20 Active 060877351 herniation Problem Lesion of oral K13.70 Active 5325390072747091 mucosa Problem Abnormal mammogram R92.8 Active 663515577 Problem Hypertension I10 Active 28481832 Problem Ingrown toenail of L60.0 Active 187839854 right foot Problem Mild carotid I77.9 Active 238515028 artery disease Problem Dizziness R42 Active 588927261 Problem Primary insomnia F51.01 Active 5732123 Problem Skipped heart I45.9 Active 597246999 beats Problem 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, cervical region Problem Elevated blood I10 Active 66825260 pressure reading with diagnosis of hypertension Problem Other spondylosis M47.22 Active 405018677 with radiculopathy, cervical region Problem Pain in left M25.512 Active 02049572 shoulder Problem Memory changes R41.3 Active 259549952 Problem Gastroesophageal K21.9 Active 991336486 reflux disease, esophagitis presence not specified Problem Screening for Z12.39 Active 742674105 malignant neoplasm of breast Problem 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 655138510 spine with radiculopathy, lumbar region ALLERGIES No Known Allergies ENCOUNTERS from 1950 to 2020-03-14 Encounter Location Date Provider Diagnosis [facility] [address], Na Byrd Acq uired hypothyroidism [facility] [address], E03[address]9 ; [place] [address] ; Screening fo r malignant neoplasm of ap ast Z12.39 ; Hyperlipidemi a E78.5 ; Skipped heart b eats I45.9 ; Mild atherosc lerosis of both carotid ar teries I65.23 ; Primar y insomnia F51.01 ; Season al allergic rhinit is due to pollen J30.1 ; Osteoarthritis of spine with radiculopa thy, lumbar region M 47.26 and Needs flu shot Z23 IMMUNIZATIONS Vaccine Route Administration Date Status FluAD IM Intramuscular Mar 11, 2020 Administered FluAD IM Intramuscular Jan 23, 2019 Administered Kenalog (Triamcinolone) IM Intramuscular October 23, 2019 Adminis tered Kenalog (Triamcinolone) Unknown Jun 13, 2018 Administ ered Kenalog (Triamcinolone) IM Intramuscular May 22, 2018 [...] No Information VITAL SIGNS Height 60.00 in Feb, Weight 145.8 lbs Feb, Temperature 97.6 degrees Fahrenheit Feb, BMI 28.47 kg/m2 Feb, Oximetry 97 % Feb, Respiratory Rate 16 /min Feb, Blood pressure systolic 161 mm Hg Feb, Blood pressure diastolic 72 mm Hg Feb, MEDICATIONS Medication SIG (Take, Route, Frequency, Start Date End Date Status Duration) Lipitor 20 MG TAKE 1 TABLET EVERY DAY Act jah Claritin 10 MG 1 tablet Orally Once a day Active for 90 days Atorvastatin Calcium 40 MG 1 tablet Orally Once a day Dec, Active for 90 days Omeprazole 40 MG 1 capsule Orally Once a day Jan, Active for 90 days Levothyroxine Sodium 50 MCG 1 tablet in the morning on Active an empty stomach Orally Once a day for 90 days Losartan Potassium 100 MG 1 tablet Orally Once a day Feb, Active for 90 days Meclizine HCl 25 MG 1 tablet as needed Orally Active Once a day for 30 day(s) Lipitor 20 MG 1 tablet Orally Once a day Active for 90 days Mirtazapine 15 MG 1 tablet at bedtime Orally Active Once a day for 90 days Montelukast Sodium 10 mg 1 tablet in the evening Active Orally Once a day for 90 Levothyroxine Sodium 50 MCG TAKE 1 TABLET EVERY MORNING Active ON AN EMPTY STOMACH Losartan Potassium 100 MG TAKE 2 TABLET BY MOUTH EVERY Active DAY Orally Once a day for 90 days Coreg 12.5 MG 1 tab Orally twice a day for Active 90 days Montelukast Sodium 10 MG 1 tablet Orally Once a day Feb, Active at bedtime for 90 days Carvedilol 12.5 MG 1 tablet with food Orally Dec, Active Twice a day for 90 days PROCEDURES No Information RESULTS No Results REASON FOR VISIT 3 month follow up with lab/s , htn, hyperlipidemia, hypothyroidism, skipped beats, fatigue, flu shot, need order for mammogram MEDICAL (GENERAL) HISTORY Type Description Date Medical [...] STATUS No Information ASSESSMENTS Encounter Date Diagnosis Notes Feb, Hypertension (ICD-10 - I10) Feb, Acquired hypothyroidism (ICD-10 - E03.9) Feb, Hyperlipidemia (ICD-10 - E78.5) Feb, Screening for malignant neoplasm of [address] (ICD-10 - Z12.39) Feb, Osteoarthritis of spine with radiculopat hy, lumbar region (ICD-10 - M47.26) Feb, Seasonal allergic rhinitis due to pollen (ICD-10 - J30.1) Feb, Needs flu shot (ICD-10 - Z23) Feb, Primary insomnia (ICD-10 - F51.01) Feb, Mild atherosclerosis of both carotid art eries (ICD-10 - I65.23) Feb, Skipped heart beats (ICD-10 - I45.9) PLAN OF TREATMENT Medication Medication Name Sig Start Date Stop Date Losartan Potassium 100 MG 1 tablet Orally Once a day for 90 30 O 2019 days Coreg 12.5 MG 1 tab Orally twice a day for 90 days Mirtazapine 15 MG 1 tablet at bedtime Orally Once a day for 90 days Levothyroxine Sodium 50 MCG 1 tablet in the morning on an empty stomach Orally Once a day for 90 days Claritin 10 MG 1 tablet Orally Once a day for 90 days Montelukast Sodium 10 MG 1 tablet Orally Once a day at 27 Oct, 2 020 bedtime for 90 days Losartan Potassium 100 MG [...] necessary. Hypertension Maintian a low salt DASH increase losart an from diet, exercise, weight loss 50 to 100mg at bedtime and decrease stress on 03/11/20 recommended. Keep BP log and will review next visit. If blood pressure consistently above 140/90 return to clinic for adjustment of meds. Try to quit smoking if you currently smoke. Decrease caffeine intake if possible.- increase water intake to 8 cups a day.- do not read on phone read bible by book as may strain eyes- Hyperlipidemia low fat diet, decrease fast food and fried foods. Increase fruit and vegetable intake. exercise as tolerated 30minutes per day at least 3 days a week. May take fish oil 1000mg twice daily to help increase good cholesterol (HDL). Skipped heart beats cont f/u with cardiology Mild atherosclerosis of both had life line screen in carotid arteries December 282004 with mild- moderat carotlid artery plaque buildup.f/u with cardiology- on statin Seasonal allergic rhinitis due Allergies- avoid triggers. to pollen Use zyrtec or claritin otc once daily in AM to help control watery itchy eyes and runny nose. Use Flonase nasal spray two sprays once a day to help decrease inflammation and decrease nasal drainage/post nasal drip. Use saline nasal mist or irrigation as directed. Osteoarthritis of spine with pain control with tylenol as radiculopathy, lumbar region needed avoid nsaids due to gerd/ hx h.pylori pain control with tylenol as needed avoid nsaids due to gerd/ hx h.pylori Needs flu shot Influenza vaccination given no acute reaction while in clinic. advised to massage and move arm to prevent pain and swelling. Treatment Notes Test Name Order Date Lipid Panel w/ Chol/HDL Ratio 2020-03-14 Comp. Metabolic Panel (14) (CMP) 2020-03-14 CBC w/ Diff w/o Plt 2020-03-14 TSH Rfx on Abnormal to Free T4 2020-03-14 SCREENING MAMMO W CAD 2020-03-14 Next Appt Details 4 Weeks BP check, 3M Reason: Provider Name:Lissa Byrd, 2020-04-09 10:0 0:00 AM, [address], [place], [address], Provider Name:Lissa Byrd, 2020-06-02 09:3 0:00 AM, [address], [address], [place], [address], Provider Name:Lissa Byrd, 2020-06-10 10:0 0:00 AM, [address], [address], [place], [address], Insurance Providers Payer Name Payer Address Payer Insured Patient Coverage Cover age End Phone Name Relationship to Start Date Noman e Insured [employer] [address] [address] [phone] Kayla Babcock self 2019 [place]IC[place] [address]23 [phone]
--- OUTSIDE RECORDS SUMMARY | 2020-04-24 09:15 | XMS REPORT ---
:1950 Author Organization [facility] Address 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 Active 75570782 eye, unspecified glaucoma type Problem Mild I65.23 Active 713549695 atherosclerosis of both carotid arteries Problem Hyperlipidemia E78.5 Active 35219607 Problem Abnormal mammogram R92.8 Active 250454915 of left breast Problem Allergic rhinitis J30.9 Active 89790870 Problem Acquired E03.9 Active 819784393 hypothyroidism Problem GERD K21.9 Active 827963799 (gastroesophageal reflux disease) Problem Cervicalgia M54.2 Active 57049552 Problem Pain in right M25.511 Active 85604475 shoulder Problem Decreased hearing H91.91 Active 001039229 of right ear Problem History of recent Z91.81 Active 497093119 fall Problem Cervical disc M50.20 Active 598578984 herniation Problem Lesion of oral K13.70 Active 3336558054662506 mucosa Problem Abnormal mammogram R92.8 Active 278626453 Problem Hypertension I10 Active 12213971 Problem Ingrown toenail of L60.0 Active 564268791 right foot Problem Mild carotid I77.9 Active 137748515 artery disease Problem Dizziness R42 Active 911303825 Problem Primary insomnia F51.01 Active 6220259 Problem Skipped heart I45.9 Active 918264671 beats Problem Other spondylosis 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 23281241 with myelopathy, cervical region Problem Elevated blood I10 Active 52956457 pressure reading with diagnosis of hypertension Problem Other spondylosis M47.22 Active 525150593 with radiculopathy, cervical region Problem Pain in left M25.512 Active 52760879 shoulder Problem Memory changes R41.3 Active 763633264 Problem Gastroesophageal K21.9 Active 864461076 reflux disease, esophagitis presence not specified Problem Screening for Z12.39 Active 382722226 malignant neoplasm of breast Problem 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 926245701 spine with radiculopathy, lumbar region ALLERGIES No Known Allergies ENCOUNTERS from 1950 to 2020-02-14 Encounter Location Date Provider Diagnosis [facility] [address] Jan, [place] Pain in joint of left [facility] [address] hip M25 .552 ; [place] Trochanteric bu rsitis [address] of left hip M70 .62 and Lesion of p elvic bone M89.9 IMMUNIZATIONS Vaccine Route Administration Date Status FluAD IM Intramuscular Jan 23, 2019 Administered [...] No Information VITAL SIGNS Height 60.00 in Jan, Weight 145.2 lbs Jan, Temperature 97.3 degrees Fahrenheit Jan, BMI 28.35 kg/m2 Jan, Blood pressure systolic 142 mm Hg Jan, Blood pressure diastolic 79 mm Hg Jan, MEDICATIONS Medication SIG (Take, Route, Frequency, Start Date End Date Status Duration) Omeprazole 40 MG 1 capsule Orally Once a day Jan, Active for 90 days Coreg 12.5 MG 1 tab Orally twice a day for Active 90 days Levothyroxine Sodium 50 MCG TAKE 1 TABLET EVERY MORNING Active ON AN EMPTY STOMACH Meclizine HCl 25 MG 1 tablet as needed Orally Active Once a day for 30 day(s) Carvedilol 12.5 MG 1 tablet with food Orally Dec, Active Twice a day for 90 days Levothyroxine Sodium 50 MCG 1 tablet in the morning on Active an empty stomach Orally Once a day for 90 days Montelukast Sodium 10 mg 1 tablet in the evening Active Orally Once a day for 90 Lipitor 20 MG TAKE 1 TABLET EVERY DAY Act jah Claritin 10 MG 1 tablet Orally Once a day Active for 90 days Mirtazapine 15 MG 1 tablet at bedtime Orally Active Once a day for 30 day(s) Atorvastatin Calcium 40 MG 1 tablet Orally Once a day Dec, Active for 90 days Losartan Potassium 50 MG TAKE 1 TABLET BY MOUTH EVERY Active DAY for 90 PROCEDURES No Information RESULTS No Results REASON FOR VISIT F/U LEFT PELVIS (X-RAY) MEDICAL (GENERAL) HISTORY Type Description Date Medical [...] No Information ASSESSMENTS Encounter Date Diagnosis Notes Jan, Trochanteric bursitis of left hip (ICD-1 0 - M70.62) Jan, Pain in joint of left hip (ICD-10 - M25. 552) Jan, Lesion of pelvic bone (ICD-10 - M89.9) PLAN OF TREATMENT Treatment Notes Assessment Notes Clinical Notes Trochanteric bursitis of left hip -continue with conservativ e treatment measures including home exercise program and progress with activities as tolerated-f/u as needed Lesion of pelvic bone -MRI of the pelvis demonstrates a benign appearing lesion of the supracetabular region; no signs of soft tissue irritation-discussed with radiologist and imaging of lesion most consistent with bone island-f/u xray today demonstrates no significant change-f/u as needed Treatment Notes Test Name Order Date X-RAY EXAM PELVIS 1-2 VIEWS ([id number]) 2020-02-14 Next Appt Details prn Reason: Provider Name:Lissa Byrd, 2020-03-11 11:0 0:00 AM, [address], [address], [place], [address], Provider Name:Lissa Byrd, 2020-03-18 11:0 0:00 AM, [address], [address], [place], [address], Insurance Providers Payer Name Payer Address Payer Insured Patient Coverage Cover age End Phone Name Relationship to Start Date Noman e Insured [employer] [address] [address] [phone] Kayla Babcock self 2019 MEDIC[place] [address]23 [phone]
--- OUTSIDE RECORDS SUMMARY | 2020-04-24 09:15 | XMS REPORT ---
:1950 Author Organization [facility] Address [address] [place] [address] Care Team Providers Name Role Phone Byrd Unavailable [phone] PROBLEMS Type Condition ICD9-CM [id number] Onset Condition SNOMED Code Notes Code Code Dates Status Problem Family history of Z80.0 Active 255449996 colon cancer Problem Other M15.8 Active 341222734 osteoarthritis involving multiple joints Problem Dry eyes H04.123 Active 675381609 Problem Seasonal allergic J30.1 Active 54360168 rhinitis due to pollen Problem Family history of Z83.3 Active 812296542 diabetes mellitus (DM) Problem Tinea unguium B35.1 Active 146237783 Problem 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 Active 48512499 eye, unspecified glaucoma type Problem Mild I65.23 Active 528898710 atherosclerosis of both carotid arteries Problem Hyperlipidemia E78.5 Active 59975699 Problem Abnormal mammogram R92.8 Active 919300188 of left breast Problem Allergic rhinitis J30.9 Active 50414673 Problem Acquired E03.9 Active 732834017 hypothyroidism Problem GERD K21.9 Active 713752209 (gastroesophageal reflux disease) Problem Cervicalgia M54.2 Active 12704062 Problem Pain in right M25.511 Active 14668982 shoulder Problem Decreased hearing H91.91 Active 016886573 of right ear Problem History of recent Z91.81 Active 510726489 fall Problem Cervical disc M50.20 Active 059725096 herniation Problem Lesion of oral K13.70 Active 7834151312721319 mucosa Problem Abnormal mammogram R92.8 Active 450980081 Problem Hypertension I10 Active 33254215 Problem Ingrown toenail of L60.0 Active 754114992 right foot Problem Mild carotid I77.9 Active 080449221 artery disease Problem Dizziness R42 Active 107890218 Problem Primary insomnia F51.01 Active 4545028 Problem Skipped heart I45.9 Active 336128562 beats Problem Other spondylosis 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 73398985 with myelopathy, cervical region Problem Elevated blood I10 Active 72159987 pressure reading with diagnosis of hypertension Problem Other spondylosis M47.22 Active 016397799 with radiculopathy, cervical region Problem Pain in left M25.512 Active 44827137 shoulder Problem Memory changes R41.3 Active 783449485 Problem Gastroesophageal K21.9 Active 990636472 reflux disease, esophagitis presence not specified Problem Screening for Z12.39 Active 748992499 malignant neoplasm of breast Problem 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 350670687 spine with radiculopathy, lumbar region ALLERGIES No Known Allergies ENCOUNTERS from 1950 to 2020-03-14 Encounter Location Date Provider Diagnosis [facility] [address], [place] [address] IMMUNIZATIONS Vaccine Route Administration Date Status FluAD [...] REASON FOR REFERRAL No Information VITAL SIGNS No information MEDICATIONS Medication SIG (Take, Route, Frequency, Start [...] Information RESULTS No Results REASON FOR VISIT ePrescription CancelRx response MEDICAL (GENERAL) HISTORY Type Description Date Medical [...] No Information FUNCTIONAL STATUS No Information ASSESSMENTS No Information PLAN OF TREATMENT Medication Medication Name Sig Start Date Stop Date Losartan Potassium 100 MG 1 tablet Orally Once a day for 90 30 2019 days Coreg 12.5 MG 1 tab [...] 1 tablet Orally Once a day at Feb, 020 bedtime for 90 days Losartan Potassium 100 MG TAKE 2 TABLET BY MOUTH EVERY DAY Orally Once a day for 90 days Lipitor 20 MG 1 tablet Orally Once a day for 90 days Next Appt Details Provider Name:Lissa Byrd, 2020-04-09 10:0 0:00 AM, [address], [place], [address], Provider Name:Lissa Byrd, 2020-06-02 09:3 0:00 AM, [address], [address], [place], [address], Provider Name:Lissa Byrd, 2020-06-10 10:0 0:00 AM, [address], [address], [place], [address], Insurance Providers Payer Name Payer Address Payer Insured Patient Coverage Cover age End Phone Name Relationship to Start Date Noman e Insured [employer] [address] [address] [phone] Kayla Babcock self 2019 MEDIC[place] [address]23 [phone]
--- NOTE | 2020-04-24 09:47 | RAD REPORT ---
EXAM DESCRIPTION: CT - Head Brain Wo Cont - 04/24/2020 9:33 am CLINICAL HISTORY: Dizziness COMPARISON: 2008 TECHNIQUE: Computed axial tomography of the head was obtained. IV contrast was not requested. All CT scans are performed using dose optimization technique as appropriate and may include automated exposure control or mA/KV adjustment according to patient size. FINDINGS: An intracranial bleed is not seen . The ventricles are normal in caliber. No extra-axial fluid collection is noted. Fluid within the sinuses/ mastoids is not seen. IMPRESSION: No acute intracranial abnormality is seen. If patient's symptoms persist MRI of the bra in would be recommended.
[2020-04-24 10:38] LABS: Absolute Lymphocytes (CBC) 1.4 K/uL (0.7-4.9); Basophils % 0.6 % (0-1.3); Hematocrit 41.6 % (36.0-45.0); Lymphocytes % 25.6 % (15.3-44.8); MPV 10.5 fL (7.6-11.3); RBC Red Blood Cell Count 4.59 M/uL (3.86-4.86)
[2020-04-24 10:46] LABS: Protime INR 1.02
--- NOTE | 2020-04-24 10:47 | RAD REPORT ---
EXAM DESCRIPTION: Richard Single View04/24/2020 10:38 am CLINICAL HISTORY: Chest pain COMPARISON: July 2019 e FINDINGS: The lungs appear clear of acute infiltrate. The heart is normal size. The aorta is tortuo us/ectatic IMPRESSION: No acute abnormalities displayed
[2020-04-24 11:02] LABS: ALT/SGPT 28 U/L (12-78); AST/SGOT 23 U/L (15-37); Albumin 3.8 g/dL (3.4-5.0); Alkaline Phosphatase 91 U/L (45-117); BUN Blood Urea Nitrogen 11 mg/dL (7-18); Bicarbonate 30 mmol/L (21-32); Bilirubin Direct 0.2 mg/dL (0-0.2); Glucose Level 102 mg/dL (74-106); Magnesium 2.8 mg/dL (1.8-2.4); NT PRO-BNP 119 pg/mL (<125); Potassium 3.9 mmol/L (3.5-5.1); Protein, Total 7.3 g/dL (6.4-8.2); Sodium Level 142 mmol/L (136-145); Troponin (Emerg Dept Use Only) < 0.02 ng/mL (0.0-0.045)
[2020-04-24 11:27] LABS: Platelet Estimate ADEQ; Platelets, Giant FEW; White Blood Cell Scan OK (OK)
[2020-04-24 11:28] LABS: Blood Morphology Comment NOT SEEN (NOT SEEN)
--- NOTE | 2020-04-24 12:39 | RAD REPORT ---
EXAM DESCRIPTION: CT - Chest For Pe Angio - 04/24/2020 12:30 pm CLINICAL HISTORY: Chest pain. Chest pain;Palpitations COMPARISON: No comparisons TECHNIQUE: CT angiogram of the pulmonary arteries was performed with MIP. All CT scans are performed using dose optimization technique as appropriate and may include automated exposure control or mA/KV adjustment according to patient size. FINDINGS: No evidence of pulmonary thromboembolism. No acute aortic finding demonstrated. Mild ground-glass opacities in both lungs are noted, nonspecific. Interstitial pneumonitis or interst itial pulmonary edema are possible. No significant pericardial or pleural fluid. No concerning bony finding. IMPRESSION: No evidence of pulmonary thromboembolism.
--- NOTE | 2020-04-24 13:00 | EDPHYS ---
Physician Documentation [facility] Name: Kayla Babcock Age: 69 yrs Sex: Female : 1950 Arrival Date: 04/24/2020 Time: 08:51 Bed 25 Private MD: Lissa Byrd ED Physician Pan Hurst HPI: 04/24 13:05 This 69 yrs old Female presents to ER via Wheelchair with complaints of Chest kdr Pressure, Dizziness. 13:08 The patient c/o right facial and head pressure, intermittent palpations and flutters, kdr dizziness. Onset: The symptoms/episode began/occurred gradually, last few days. Severity of symptoms: At their worst the symptoms were mild in the emergency department the symptoms have resolved have improved. The patient has experienced similar episodes in the past, multiple times, chronically. The patient has been recently seen by a physician: the patient's primary care provider. Historical: - Allergies: 09:09 No Known Allergies; iw - Home Meds: 09:09 carvedilol 12.5 mg oral tab 1 tab 2 times per day [Active]; atorvastatin 20 mg oral tab iw 1 tab once daily [Active]; losartan 100 mg oral tab 1 tab once daily [Active]; levothyroxine 50 mcg tab 1 tab once daily [Active]; meclizine 25 mg Oral tab 1 tab 2 times per day [Active]; - PMHx: 09:09 High Cholesterol; Hypertension; iw - PSHx: 09:09 left ovary removed; iw - Immunization history:: Adult Immunizations up to date. - Social history:: Smoking status: Patient denies any tobacco usage or history of. ROS: 15:29 Constitutional: Negative for fever, chills, and weight loss, Eyes: Negative for injury, kdr pain, redness, and discharge, Neck: Negative for injury, pain, and swelling, Respiratory: Negative for shortness of breath, cough, wheezing, and pleuritic chest pain, Abdomen/GI: Negative for abdominal pain, nausea, vomiting, diarrhea, and constipation, Back: Negative for injury and pain, : Negative for injury, bleeding, discharge, and swelling, MS/Extremity: Negative for injury and deformity, Skin: Negative for injury, rash, and discoloration, Psych: Negative for depression, anxiety, suicide ideation, homicidal ideation, and hallucinations, Allergy/Immunology: Negative for hives, rash, and allergies, Endocrine: Negative for neck swelling, polydipsia, polyuria, polyphagia, and marked weight changes, Hematologic/Lymphatic: Negative for swollen nodes, abnormal bleeding, and unusual bruising. 15:29 Constitutional: Positive for right facial pressure. 15:29 Cardiovascular: Positive for chest pain, of the anterior aspect of right upper chest, left lateral anterior chest and right breast, palpitations, Negative for edema, orthopnea, paroxysmal nocturnal dyspnea. 15:29 All other systems are negative. Exam: 10:08 ECG was reviewed by the Attending Physician. kdr 15:29 Constitutional: This is a well developed, well nourished patient who is awake, alert, kdr and in no acute distress. Head/Face: Normocephalic, atraumatic. Eyes: Pupils equal round and reactive to light, extra-ocular motions intact. Lids and lashes normal. Conjunctiva and sclera are non-icteric and not injected. Cornea within normal limits. Periorbital areas with no swelling, redness, or edema. Neck: Trachea midline, no thyromegaly or masses palpated, and no cervical lymphadenopathy. Supple, full range of motion without nuchal rigidity, or vertebral point tenderness. No Meningismus. Chest/axilla: Normal chest wall appearance and motion. Nontender with no deformity. No lesions are appreciated. Cardiovascular: Regular rate and rhythm with a normal S1 and S2. No gallops, murmurs, or rubs. Normal PMI, no JVD. No pulse deficits. Respiratory: Lungs have equal breath sounds bilaterally, clear to auscultation and percussion. No rales, rhonchi or wheezes noted. No increased work of breathing, no retractions or nasal flaring. Abdomen/GI: Soft, non-tender, with normal bowel sounds. No distension or tympany. No guarding or rebound. No evidence of tenderness throughout. Back: No spinal tenderness. No costovertebral tenderness. Full range of motion. Skin: Warm, dry with normal turgor. Normal color with no rashes, no lesions, and no evidence of cellulitis. MS/ Extremity: Pulses equal, no cyanosis. Neurovascular intact. Full, normal range of motion. Neuro: Awake and alert, GCS 15, oriented to person, place, time, and situation. Cranial nerves II-XII grossly intact. Motor strength 5/5 in all extremities. Sensory grossly intact. Cerebellar exam normal. Normal gait. Psych: Awake, alert, with orientation to person, place and time. Behavior, mood, and affect are within normal limits. Vital Signs: 09:05 BP 140 / 72; Pulse 78; Resp 16; Temp 97.3; Pulse Ox 100% on R/A; Weight 66.68 kg; iw Height 5 ft. 2 in. (157.48 cm); 10:38 BP 177 / 79; Pulse 63; Resp 17; Pulse Ox 100% ; jl7 11:23 BP 177 / 84; Pulse 64; Resp 15; Pulse Ox 98% ; jl7 12:30 BP 166 / 78; Pulse 64; Resp 15; Pulse Ox 100% ; jl7 09:05 Body Mass Index 26.89 (66.68 kg, 157.48 cm) iw MDM: 13:00 Patient medically screened. kdr 13:03 HEART Score: History: Slightly Suspicious (0), ECG: Non specific repolarization kdr disturbance / LBTB / PM (1), Age: > or = 65 years (2), Risk Factors: 1 or 2 risk factors (1), Troponin: < or = 1 x Normal Limit (0), Total Score = 4. Data reviewed: vital signs, nurses notes, lab test result(s), EKG, radiologic studies. Counseling: I had a detailed discussion with the patient and/or guardian regarding: the historical points, exam findings, and any diagnostic results supporting the discharge/admit diagnosis, lab results, radiology results, the need for outpatient follow up. Special discussion: Based on the patient's history, exam, and Dx evaluation, there is no indication for emergent intervention or inpatient Tx. It is understood by the patient/guardian that if the Sx's persist or worsen they need to return immediately for re-evaluation. I discussed with the patient/guardian in detail that at this point there is no indication for admission to the hospital. It is understood, however, that if the symptoms persist or worsen the patient needs to return immediately for re-evaluation. ED course: The patient was feeling much better at the time of discharge. Here s/s had completely resolved.. 04/24 10:03 Order name: Basic Metabolic Panel kdr 04/24 10:03 Order name: CBC with Diff kdr 04/24 10:03 Order name: LFT's kdr 04/24 10:03 Order name: Magnesium kdr 04/24 10:03 Order name: NT PRO-BNP kdr 04/24 10:03 Order name: PT-INR kdr 04/24 10:03 Order name: Troponin (emerg Dept Use Only) kdr 04/24 10:27 Order name: D-Dimer jl7 04/24 10:44 Order name: CBC with Automated Diff; Complete Time: 12:00 EDMS 04/24 10:48 Order name: Protime (+INR); Complete Time: 12:00 EDMS 04/24 11:02 Order name: Basic Metabolic Panel; Complete Time: 12:00 EDMS 04/24 11:02 Order name: Liver (Hepatic) Function; Complete Time: 12:00 EDMS 04/24 11:02 Order name: Troponin (Emerg Dept Use Only); Complete Time: 12:00 EDMS 04/24 11:02 Order name: NT PRO-BNP; Complete Time: 12:00 EDMS 04/24 09:17 Order name: CT Head Brain wo Cont; Complete Time: 10:03 iw 04/24 10:03 Order name: XRAY Chest (1 view); Complete Time: 12:00 kdr 04/24 10:03 Order name: EKG; Complete Time: 10:04 kdr 04/24 10:03 Order name: Cardiac monitoring; Complete Time: 10:28 kdr 04/24 10:03 Order name: EKG - Nurse/Tech; Complete Time: 10:28 kdr 04/24 10:03 Order name: IV Saline Lock; Complete Time: 10:28 kdr 04/24 10:03 Order name: Labs collected and sent; Complete Time: 10:28 kdr 04/24 10:03 Order name: O2 Per Protocol; Complete Time: 10:28 kdr 04/24 10:03 Order name: O2 Sat Monitoring; Complete Time: 10:28 kdr 04/24 11:02 Order name: Magnesium; Complete Time: 12:00 EDMS 04/24 11:17 Order name: D-Dimer; Complete Time: 12:00 EDMS 04/24 11:20 Order name: CBC Smear Scan; Complete Time: 12:00 EDMS 04/24 12:02 Order name: CT Chest For PE Angio; Complete Time: 12:47 kdr 12/10 12:02 Order name: Troponin (emerg Dept Use Only); Complete Time: 12:47 kdr EC:08 Rate is 67 beats/min. Rhythm is regular, Normal Sinus Rhythm with No ectopy. QRS [place] kdr is Normal. [place] interval is normal. QRS interval is normal. QT interval is normal. No Q waves. Clinical impression: Normal ECG. Administered Medications: No medications were administered Disposition: 04/24/20 13:00 Discharged to Home. Impression: Dizziness and giddiness. - Condition is Stable. - Discharge Instructions: Dizziness, Vertigo, Nonspecific Chest Pain, [id number]. - Prescriptions for Meclizine 25 mg Oral Tablet - take 1 tablet by ORAL route every 8 hours As needed; 30 tablet. - Medication Reconciliation Form, Thank You Letter form. - Follow up: Pan Hurst MD; When: 2 - 3 days; Reason: If symptoms return, Further diagnostic work-up, Recheck today's complaints, Continuance of care, Re-evaluation by your physician. Follow up: Lissa Byrd MD; When: 2 - 3 days; Reason: If symptoms return, Further diagnostic work-up, Recheck today's complaints, Continuance of care, Re-evaluation by your physician. - Problem is new. - Symptoms have improved. Signatures: Dispatcher [employer] EDMS Pan Hurst MD MD kdr Julieta Marie RN RN iw José Miguel Devi RN RN jl7 Corrections: (The following items were deleted from the chart) 13:11 13:00 04/24/2020 13:00 Discharged to Home. Impression: Dizziness and giddiness. kdr Condition is Stable. Forms are Medication Reconciliation Form, Thank You Letter, Antibiotic Education, Prescription Opioid Use. Follow up: Dr. Pan Hurst; When: 2 - 3 days; Reason: If symptoms return, Further diagnostic work-up, Recheck today's complaints, Continuance of care, Re-evaluation by your physician. Problem is new. Symptoms have improved. kdr 13:18 13:11 04/24/2020 13:00 Discharged to Home. Impression: Dizziness and giddiness. jl7 Condition is Stable. Discharge Instructions: Dizziness, Vertigo, Nonspecific Chest Pain, [id number]. Prescriptions for Meclizine 25 mg Oral Tablet - take 1 tablet by ORAL route every 8 hours As needed; 30 tablet. and Forms are Medication Reconciliation Form, Thank You Letter. Follow up: Lissa Byrd; When: 2 - 3 days; Reason: If symptoms return, Further diagnostic work-up, Recheck today's complaints, Continuance of care, Re-evaluation by your physician. Problem is new. Symptoms have improved. kdr
--- NOTE | 2020-04-24 13:00 | ER ---
Nurse's Notes [facility] Name: Kayla Babcock Age: 69 yrs Sex: Female : 1950 Arrival Date: 04/24/2020 Time: 08:51 Bed 25 Private MD: Lissa Byrd Diagnosis: Dizziness and giddiness Presentation: 04/24 09:05 Chief complaint: Patient states: dizziness and pressure on right side of head and chest iw pressure since last night, room was spinning this morning , feels a fluttering in her chest. Coronavirus screen: At this time, the client does not indicate any symptoms associated with coronavirus-19. Ebola Screen: Patient negative for fever greater than or equal to 101.5 degrees Fahrenheit, and additional compatible Ebola Virus Disease symptoms Patient denies exposure to infectious person. Patient denies travel to an Ebola-affected area in the 21 days before illness onset. No symptoms or risks identified at this time. Initial Sepsis Screen: Does the patient meet any 2 criteria? No. Patient's initial sepsis screen is negative. Does the patient have a suspected source of infection? No. Patient's initial sepsis screen is negative. Risk Assessment: Do you want to hurt yourself or someone else? Patient reports no desire to harm self or others. Onset of symptoms was April 23, 2020. 09:05 Method Of Arrival: Wheelchair iw 09:05 Acuity: GUIDO 3 iw Historical: - Allergies: 09:09 No Known Allergies; iw - Home Meds: 09:09 carvedilol 12.5 mg oral tab 1 tab 2 times per day [Active]; atorvastatin 20 mg oral tab iw 1 tab once daily [Active]; losartan 100 mg oral tab 1 tab once daily [Active]; levothyroxine 50 mcg tab 1 tab once daily [Active]; meclizine 25 mg Oral tab 1 tab 2 times per day [Active]; - PMHx: 09:09 High Cholesterol; Hypertension; iw - PSHx: 09:09 left ovary removed; iw - Immunization history:: Adult Immunizations up to date. - Social history:: Smoking status: Patient denies any tobacco usage or history of. Screenin:29 Abuse screen: Denies threats or abuse. Denies injuries from another. Nutritional jl7 screening: No deficits noted. Tuberculosis screening: No symptoms or risk factors identified. Fall Risk IV access (20 points). Total Castro Fall Scale indicates No Risk (0-24 pts). Assessment: 10:00 General: Appears in no apparent distress. uncomfortable, Behavior is calm, cooperative, jl7 appropriate for age. Pain: Complains of pain in chest Pain does not radiate. Quality of pain is described as pressure, Pain began 1 day ago. Is intermittent. Neuro: Level of Consciousness is awake, alert, obeys commands, Oriented to person, place, time, situation. Cardiovascular: Patient's skin is warm and dry. Respiratory: Airway is patent Respiratory effort is even, unlabored, Respiratory pattern is regular, symmetrical. Derm: Skin is pink, warm \T\ dry. Vital Signs: 09:05 BP 140 / 72; Pulse 78; Resp 16; Temp 97.3; Pulse Ox 100% on R/A; Weight 66.68 kg; iw Height 5 ft. 2 in. (157.48 cm); 10:38 BP 177 / 79; Pulse 63; Resp 17; Pulse Ox 100% ; jl7 11:23 BP 177 / 84; Pulse 64; Resp 15; Pulse Ox 98% ; jl7 12:30 BP 166 / 78; Pulse 64; Resp 15; Pulse Ox 100% ; jl7 09:05 Body Mass Index 26.89 (66.68 kg, 157.48 cm) iw ED Course: 08:51 Patient arrived in ED. rg4 08:51 Lissa Byrd MD is Private Physician. rg4 09:07 Triage completed. iw 09:33 CT Head Brain wo Cont In Process Unspecified. EDMS 10:02 Pan Hurst MD is Attending Physician. kdr 10:15 José Miguel Devi RN is Primary Nurse. jl7 10:28 Initial lab(s) drawn, by sd, sent to lab. Inserted saline lock: 20 gauge in left jl7 antecubital area, using aseptic technique. Blood collected. 10:29 Patient maintains SpO2 saturation greater than 95% on room air. jl7 10:29 Patient has correct armband on for positive identification. Placed in gown. Bed in low jl7 position. Call light in reach. Side rails up X2. secured entrance monitor on. Pulse ox on. NIBP on. 10:30 Arm band placed on left wrist. jl7 10:38 XRAY Chest (1 view) In Process Unspecified. EDMS 12:30 No provider procedures requiring assistance completed. jl7 12:31 CT Chest For PE Angio In Process Unspecified. EDMS 12:58 Pan Hurst MD is Referral Physician. kdr 13:11 Lissa Byrd MD is Referral Physician. kdr 13:11 Referral Physician role handed off by Pan Hurst MD kdr 13:18 IV discontinued, intact, bleeding controlled, No redness/swelling at site. Pressure jl7 dressing applied. Administered Medications: No medications were administered Outcome: 13:00 Discharge ordered by . kdr 13:18 Discharged to home ambulatory. jl7 13:18 Condition: stable 13:18 Discharge instructions given to patient, family, Instructed on discharge instructions, follow up and referral plans. medication usage, Demonstrated understanding of instructions, follow-up care, medications, Prescriptions given X 1. 13:18 Patient left the ED. jl7 Signatures: Dispatcher [employer] EDMS Pan Hurst MD MD [facility] Julieta Marie, RN Dasia Patel rg4 José Miguel Devi, RN RN jl7
[2020-04-29 16:23] VITALS: TEMP 97.3
[2020-04-29 16:30] VITALS: BP 166/78; O2SAT 100
== END 2020-04-24 13:18 | disposition home or self-care (01) ==
LOC: ER 08:49
DX: R42 Dizziness and giddiness (principal); R07.9 Chest pain, unspecified; R00.2 Palpitations; I10 Essential (primary) hypertension; E78.00 Pure hypercholesterolemia, unspecified
CPT/HCPCS: 93005; 85025; 80048; 36415; 83735; 85610; 85379; 80076; 84484 ×2; 83880; 70450; 71275; 71045; 99285; Q9967